=== PATIENT | female | born 1970 | race Caucasian/White ===

== ENCOUNTER 2021-06-28 07:46 | Inpatient (IN) | payer BC, SELFPAY ==
[2021-06-28] VITALS (18 sets, daily range): BP systolic 121–180; BP diastolic 65–104; PULSE 62–90; RESP 18–33; TEMP 36.6–37.1; O2SAT 85–95; BMI 60.0
--- NOTE | 2021-06-28 07:52 | XRR_ITS ---
PROCEDURE INFORMATION: Exam: XR Chest Exam date and time: 06/28/2021 7:52 AM Age: 50 years old Clinical indication: Cough and shortness of breath TECHNIQUE: Imaging protocol: XR of the chest. Views: 1 view. COMPARISON: No relevant prior studies available. FINDINGS: Lungs: Poor inspiration. Decreased lung volumes. Bilateral, asymmetric airspace disease, more so peripherally than centrally, potentially due to pneumonia. Pleural spaces: No pleural effusion or pneumothorax. Heart/Mediastinum: The cardiac silhouette is not enlarged. The mediastinal contours are normal. Bones/joints: There are multilevel bridging osteophytes in the spine. XR/XR chest 1V portable [id number] IMPRESSION: Bilateral, asymmetric airspace disease which could be due to pneumonia. COVID-19 status? Radiation Dose CTDIVOL = (mGy): DLP = (mGy-cm)
--- NOTE | 2021-06-28 07:55 | ECG_ITS ---
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
[2021-06-28] MEDS: albuterol 8 gm MDI 6 PUFF INHALATION (08:12)
[2021-06-28 08:14] LABS: Basophils % 0.3 %; Eosinophils % 0.1 %; Hematocrit 37.8 % (37.0-47.0); Hemoglobin 12.3 g/dL (11.5-15.3); Lymphocytes # 1.2 10^3/uL (0.8-4.8); Lymphocytes % 16.6 %; Mean Corpuscular HGB Conc 32.5 g/dL (30.0-36.0); Mean Corpuscular Hemoglobin 27.6 pg (28.0-34.0); Mean Corpuscular Volume 84.9 fl (81-99); Mean Platelet Volume 10.1 fL (7.4-10.4); Monocytes # 0.4 10^3/uL (0.2-0.9); Monocytes % 5.6 %; Neutrophils # 5.45 10^3/uL (1.8-7.7); Nucleated Red Blood Cells % 0 %; Platelet Count 187 10^3/cmm (130-400); Red Blood Count 4.45 10^6/uL (4.1-5.3); Red Cell Distribution Width 14.2 % (12.1-15.1); White Blood Count 7.2 10^3/uL (4.0-10.0)
[2021-06-28 08:23] LABS: ABG PCO2 39.4 mmHg (35-45); ABG PH Result 7.45 (7.35-7.45); Alveolar-Arterial Oxygen Gradi 21.2 mmHg (5-10); Arterial Blood Gas Hematocrit 39.2 % (37-47); Base Excess ABG 2.8 mmol/L (-2.0-2.0); Blood Gas Allen Test Pos; Blood Gas Operator Identificat ED; Blood Gas Sample Site Radial, right; Blood Gas Sample Type Arterial; Carboxyhemoglobin 0.8 %THgb (0.4-20.1); HGB O2 Sat 94.7 % (95-100); Ionized Calcium Level - ABG 1.1 mmol/L (1.1-1.4); Methemoglobin 0.3 % (0.4-1.5); Oxygen Device NC; Oxygen Saturation ABG 95.7; PO2 ABG 74.5 mmHg (80.0-100.0); Potassium Level - ABG 4.2 mmol/L (3.5-5.0); Total Hemoglobin 12.8 g/dL (12-16)
[2021-06-28] MEDS: sodium chloride 0.9% 1,000 ML 100 ML IV ×2 (08:23→16:46)
[2021-06-28] MEDS: ondansetron 2 mg/ML SDV 2 mL 4 MG IVP (08:24)
[2021-06-28] MEDS: dexamethasone 10 mg/mL INJ 6 MG IVP (08:26)
--- NOTE | 2021-06-28 08:27 | W.ED.SOB ---
HPI - SOB/Dyspnea General: Chief Complaint: Shortness of Breath/Dyspnea Stated Complaint: SOB Time Seen by Provider: 06/28/21 07:47 Source: patient and EMS Mode of arrival: EMS Limitations: no limitations History of Present Illness: HPI Narrative: Lisa is a 50-year-old female with a history of hypertension and hypothyroidism who comes in complaining of increased shortness of breath for the past 2 weeks. She states that she has had a cough productive of yellow sputum that is been nonbloody. She is wheezing. She had a subjective fever intermittently throughout this time. Her is sick with similar symptoms in both feel as though they have Covid. Neither 1 has been vaccinated for Covid. Upon arrival EMS noted the patient have a pulse oximetry of 80% on room air. She was placed on 4 L nasal cannula with improvement of her oxygenation in route. Patient states she feels achy all over and has associated sore throat, difficulty breathing and generalized malaise. She denies any history of lung disease such as emphysema, COPD or chronic bronchitis. She denies being a smoker. Patient states that her boyfriend is again sick with similar symptoms. Any type of exertion makes her symptoms worse and rest does seem to help but they do not resolve completely. Associated symptoms: Reports chest congestion, diaphoresis and fever(s); Deny abdominal pain, chest pain, dizziness, extremity pain, hemoptysis, lightheadedness, nausea, orthopnea, palpitations, syncope or vomiting Review of Systems Const: Reports: fever(s), chills, body aches, fatigue, malaise and diaphoresis Eyes: Denies: change in vision, blurry vision, photophobia, eye discomfort, eye discharge, eye redness or yellow eyes ENMT: Reports: throat pain, hoarseness and nasal discharge; Denies: odynophagia, swelling of lips/tongue, ear or mastoid pain, ear discharge or change in hearing Card: Reports: dyspnea on exertion; Denies: chest pain, palpitations, irregular heart rhythm, edema, lightheadedness, syncope, pre-syncope or orthopnea Resp: Reports: dyspnea, productive cough, non-productive cough, wheezing and chest congestion; Denies: hemoptysis GI: Denies: abdominal pain, nausea, vomiting, hematemesis, coffee ground emesis, heartburn, diarrhea, constipation, GI cramping, hematochezia or melena : Denies: flank pain, dysuria, urinary frequency, urinary urgency or hematuria Musc: Denies: neck pain, back pain, extremity pain, extremity swelling, joint pain, joint swelling, joint redness, joint warmth or joint stiffness Skin/Breast: Denies: rash, pruritus, erythema, skin pain or skin tenderness Neuro: Denies: headache(s), numbness in extremities, weakness in extremities, sensory changes, lack of coordination, difficulty walking, dizziness, vertigo, confusion, Slurred speech present or seizure-like activity Alberto/Lymph: Denies: easy bruising, easy bleeding, petechiae, purpura or enlarged lymph nodes All/Imm: Denies: urticaria, throat swelling, tongue swelling, facial swelling or acute wheezing PFSH ED PFSH: Medical History (Updated 06/28/21 @ 10:03 by Sun Harvey) Hypertension Hypothyroidism Surgical History (Updated 06/28/21 @ 08:31 by Sun Harvey) H/O tubal ligation Social History (Updated 06/28/21 @ 08:31 by Sun Harvey) Smoking and tobacco status: never smoked Female Reproductive History: Date of last menstrual period: 05/27/21 Physical Exam Const: COMMON NORMALS: no acute distress, patient oriented x3, no limitations and alert GENERAL APPEARANCE: cooperative HENMT: COMMON NORMALS: normocephalic, atraumatic, external ears normal, EAC's normal and Normal external nose present HEAD & SCALP: normal to inspection, normocephalic and atraumatic FACE & SINUS: normal facial exam and face symmetric NOSE: Normal external nose present and Normal nares present EXTERNAL EAR: Yes external ears normal EXTERNAL AUDITORY CANAL: EAC's normal MOUTH: Normal oral and palatal mucosa present, lip normal and tongue normal Eye: COMMON NORMALS: Equal, round and reactive pupils present and conjunctivae normal GENERAL EYE: appearance normal, both eyes and all related structures ALIGNMENT: Yes alignment normal PERIORBITAL: periorbital findings normal EYELID: eyelids normal CONJUNCTIVA: Yes conjunctivae normal SCLERA: sclerae normal PUPIL: Yes Equal, round and reactive pupils present Neck/C-Spine: COMMON NORMALS: full ROM, no lymphadenopathy, supple, no meningeal signs and no JVD GENERAL: Yes normal visual inspection and Yes trachea midline Chest: COMMONS NORMALS: normal inspection of the chest and normal palpation of entire chest wall Resp: COMMON NORMALS: normal respiratory effort, No retractions and clear to auscultation bilaterally EFFORT & INSPECTION: Yes able to speak in complete sentences, Yes symmetric chest movement, Yes tachypneic, Yes labored, Yes grunting, Yes uses accessory muscles, Yes audible wheezes and Yes prolonged expiratory phase AUSCULTATION: clear to auscultation bilaterally, no crackles, no rales, no rhonchi and no wheezes Cardio: COMMON NORMALS: no JVD, regular rate, regular rhythm, S1 normal heart sound present and S2 normal heart sound present RATE: regular rate RHYTHM: regular rhythm HEART SOUNDS: S1 normal heart sound present, S2 normal heart sound present, no click, no gallops, no murmurs and no rubs GI: COMMON NORMALS: Soft to palpation and No hepatosplenomegaly present PALPATION: Yes Soft to palpation, No Tenderness to palpation present (GI), No Guarding due to palpation present (GI), No Rigid due to palpation, Yes No hepatosplenomegaly present, No Hernia present, No Palpable mass present and No Pulsatile mass present : COMMON NORMALS: Yes no CVA tenderness BLADDER/KIDNEY EXAM: Yes no CVA tenderness EXTERNAL FEMALE EXAM: No Hernia present Back/Pelvis: COMMON NORMALS: no CVA tenderness, thoracic and lumbar spine normal to inspection, no thoracic nor lumbar tenderness and thoraco-lumbar ROM normal Extremity: COMMON NORMALS: normal to inspection, full ROM, capillary refill normal, no joint enlargement, no clubbing, cyanosis or edema and no calf tenderness Neuro: COMMON NORMALS: patient oriented x3, CN's II-XII intact bilaterally, moves all extremities, no focal motor deficits and no sensory deficits noted SENSORIUM/ORIENTATION: Yes alert MENINGEAL SIGNS: Yes no meningeal signs SPEECH: speech normal Psych: COMMON NORMALS: mental status grossly normal, Normal thought process present, cooperative, normal affect, speech normal and activity/motor behavior normal SPEECH: Yes normal speech THOUGHT PROCESS: Normal thought process present Skin: COMMON NORMALS: no rashes or lesions noted, turgor normal, no jaundice, no petechiae and no mottling GENERAL SKIN EXAM: no rashes or lesions noted and turgor normal Course Vital Signs: Vital signs: Vital Signs Temperature 98.8 F 06/28/21 07:53 Pulse Rate 87 06/28/21 08:31 Respiratory Rate 18 06/28/21 08:12 Blood Pressure 125/88 06/28/21 08:31 Pulse Oximetry 90 06/28/21 08:31 MDM - SOB/Dyspnea MDM Narrative: Medical decision making narrative: 1002 -the case was reviewed with Dr. Laureano, he agrees to go and admit. He is okay with holding off on the CTA of the chest at this time. He will decide if he wants to work her up for a PE further. At this time though he wants to hold off. Patient is stable on 5 L of nasal cannula oxygen. She is slightly tachypneic but not in respiratory distress. The patient's have received Decadron, Rocephin, Zithromax and albuterol treatments. Her lactic is normal. Further care be dictated on the inpatient service. Lab Data: Attestation: I reviewed the patient's lab results. Labs: Lab Results 06/28/21 06/28/21 06/28/21 08:02 08:02 08:02 WBC 7.2 10^3/uL 10^3/ uL (4.0-10.0) RBC 4.45 10^6/uL 10^6 /uL (4.1-5.3) Hgb 12.3 g/dL g/dL (11.5-15.3) Hct 37.8 % % (37.0-47.0) MCV 84.9 fl fl (81-99) MCH 27.6 pg L pg (28.0-34.0) MCHC 32.5 g/dL g/dL (30.0-36.0) RDW 14.2 % % (12.1-15.1) Plt Count 187 10^3/cmm 10^3 /cmm (130-400) MPV 10.1 fL fL (7.4-10.4) Neut % (Auto) 76.0 % % Lymph % (Auto) 16.6 % % Nicholas % (Auto) 5.6 % % Eos % (Auto) 0.1 % % Baso % (Auto) 0.3 % % Neut # (Auto) 5.45 10^3/uL 10^3 /uL (1.8-7.7) Lymph # (Auto) 1.2 10^3/uL 10^3/ uL (0.8-4.8) Nicholas # (Auto) 0.4 10^3/uL 10^3/ uL (0.2-0.9) Eos # (Auto) 0.0 10^3/uL 10^3/ uL (0.0-0.8) Baso # (Auto) 0.0 10^3/uL 10^3/ uL (0.0-0.1) Nucleated RBC % (a uto) 0 % % Nucleated RBCs # 0.0 /100WBC /100W BC PT 14.00 SECONDS SEC ONDS (12.1-14.9) INR 1.05 (0.8-1.2) APTT 23.1 SECONDS L SE CONDS (23.9-36.7) D-Dimer 1.82 ug/mIFEU H u g/mIFEU (0-0.59) Specimen Type Sample Site ABG pH ABG pCO2 ABG pO2 ABG HCO3 ABG O2 Saturation ABG Base Excess Matt Test A-a O2 Gradient Hematocrit Hgb O2 Saturation Carboxyhemoglobin Methemoglobin Total Hemoglobin Ionized Calcium O2 Delivery Device O2 Liters/Min FiO2 Safety And Health Manager ID Sodium 131 mmol/L L mmol /L (136-145) Potassium 4.3 mmol/L mmol/L (3.5-5.1) Chloride 94 mmol/L L mmol/ L (98-107) Carbon Dioxide 23 mmol/L mmol/L (22-29) Anion Gap 18.3 (5-19) BUN 9 mg/dL mg/dL (6-20) Creatinine 0.7 mg/dL mg/dL (0.5-0.9) GFR Calculation 88.6 mL/min L mL/ min (90-130) Glucose 167 mg/dL H mg/dL (65-115) Calculated Osmolal ity 274 mOsm/kg L mOs m/kg (285-295) Lactic Acid Calcium 8.2 mg/dL L mg/dL (8.5-10.5) Magnesium 1.7 mg/dL mg/dL (1.7-2.3) Ferritin 323 ng/mL H ng/mL (15-150) Total Bilirubin 0.3 mg/dL mg/dL (0.15-1.2) AST 68 U/L H U/L (0-32) ALT 51 U/L H U/L (0-33) Alkaline Phosphata se 90 IU/L IU/L (35-105) Lactate Dehydrogen ase 453 U/L H U/L (135-214) Troponin T Baselin e C-Reactive Protein 126.1 mg/L H mg/L (0.0-4.9) NT-Pro-B Natriuret Pep 95 pg/mL pg/mL (0-125) Total Protein 6.5 g/dL L g/dL (6.6-8.7) Albumin 3.6 g/dL g/dL (3.5-5.2) Globulin 3.1 g/dL g/dL (1.3-4.6) Urine Color Urine Appearance Urine pH Ur Specific Gravit y Urine Protein Urine Glucose (UA) Urine Ketones Urine Blood Urine Nitrate Urine Bilirubin Urine Urobilinogen Ur Leukocyte Katherin ase Urine RBC Urine WBC Ur Squamous Epith Cells Amorphous Sediment Urine Bacteria Urine Mucus Influenza Type A A g Influenza Type B A g SARS-CoV-2 Ag (Rap id) 06/28/21 06/28/21 06/28/21 08:02 08:02 08:13 WBC RBC Hgb Hct MCV MCH MCHC RDW Plt Count MPV Neut % (Auto) Lymph % (Auto) Nicholas % (Auto) Eos % (Auto) Baso % (Auto) Neut # (Auto) Lymph # (Auto) Nicholas # (Auto) Eos # (Auto) Baso # (Auto) Nucleated RBC % (a uto) Nucleated RBCs # PT INR APTT D-Dimer Specimen Type Arterial Sample Site Radial, right ABG pH 7.45 (7.35-7.45) ABG pCO2 39.4 mmHg mmHg (35-45) ABG pO2 74.5 mmHg L mmHg (80.0-100.0) ABG HCO3 27.0 mmol/L H mmo l/L (22-26) ABG O2 Saturation 95.7 ABG Base Excess 2.8 mmol/L H mmol /L (-2.0-2.0) Matt Test Pos A-a O2 Gradient 21.2 mmHg H mmHg (5-10) Hematocrit 39.2 % % (37-47) Hgb O2 Saturation 94.7 % L % (95-100) Carboxyhemoglobin 0.8 %THgb %THgb (0.4-20.1) Methemoglobin 0.3 % L % (0.4-1.5) Total Hemoglobin 12.8 g/dL g/dL (12-16) Ionized Calcium 1.1 mmol/L mmol/L (1.1-1.4) O2 Delivery Device Nc O2 Liters/Min 5.0 % % FiO2 40.0 % % Safety And Health Manager ID Ed Sodium 134.0 mmol/L mmol /L (131-143) Potassium 4.2 mmol/L mmol/L (3.5-5.0) Chloride Carbon Dioxide Anion Gap BUN Creatinine GFR Calculation Glucose 183.0 mg/dL H mg/ dL (70-115) Calculated Osmolal ity Lactic Acid 1.5 mmol/L mmol/L (0.5-2.2) Calcium Magnesium Ferritin Total Bilirubin AST ALT Alkaline Phosphata se Lactate Dehydrogen ase Troponin T Baselin e 11 ng/L H ng/L (0-10) C-Reactive Protein NT-Pro-B Natriuret Pep Total Protein Albumin Globulin Urine Color Urine Appearance Urine pH Ur Specific Gravit y Urine Protein Urine Glucose (UA) Urine Ketones Urine Blood Urine Nitrate Urine Bilirubin Urine Urobilinogen Ur Leukocyte Katherin ase Urine RBC Urine WBC Ur Squamous Epith Cells Amorphous Sediment Urine Bacteria Urine Mucus Influenza Type A A g Influenza Type B A g SARS-CoV-2 Ag (Rap id) 06/28/21 06/28/21 06/28/21 08:46 08:46 08:50 WBC RBC Hgb Hct MCV MCH MCHC RDW Plt Count MPV Neut % (Auto) Lymph % (Auto) Nicholas % (Auto) Eos % (Auto) Baso % (Auto) Neut # (Auto) Lymph # (Auto) Nicholas # (Auto) Eos # (Auto) Baso # (Auto) Nucleated RBC % (a uto) Nucleated RBCs # PT INR APTT D-Dimer Specimen Type Sample Site ABG pH ABG pCO2 ABG pO2 ABG HCO3 ABG O2 Saturation ABG Base Excess Matt Test A-a O2 Gradient Hematocrit Hgb O2 Saturation Carboxyhemoglobin Methemoglobin Total Hemoglobin Ionized Calcium O2 Delivery Device O2 Liters/Min FiO2 Safety And Health Manager ID Sodium Potassium Chloride Carbon Dioxide Anion Gap BUN Creatinine GFR Calculation Glucose Calculated Osmolal ity Lactic Acid Calcium Magnesium Ferritin Total Bilirubin AST ALT Alkaline Phosphata se Lactate Dehydrogen ase Troponin T Baselin e C-Reactive Protein NT-Pro-B Natriuret Pep Total Protein Albumin Globulin Urine Color Dark yellow (Yellow) Urine Appearance Sl hazy (CLEAR) Urine pH 6 (5-7) Ur Specific Gravit y 1.015 (1.005-1.030) Urine Protein 1+ H (Negative) Urine Glucose (UA) Norm (Normal) Urine Ketones 1+ H (Negative) Urine Blood Neg (Negative) Urine Nitrate Negative (Negative) Urine Bilirubin 1+ H (Negative) Urine Urobilinogen 1 mg/dL H mg/dL (Negative) Ur Leukocyte Katherin ase Negative (Negative) Urine RBC None /hpf /hpf (0-2) Urine WBC Rare /hpf /hpf (0-5) Ur Squamous Epith Cells 0-4 /hpf H /hpf (0-5) Amorphous Sediment Not Reportable Urine Bacteria 1+ /hpf H /hpf (NONE) Urine Mucus 2+ /hpf /hpf Influenza Type A A g Negative (Negative) Influenza Type B A g Negative (Negative) SARS-CoV-2 Ag (Rap id) Positive H (Negative) Imaging Data^: CXR: Attestation: I personally reviewed and interpreted this imaging study as follows: My impression: Bilateral infiltrates consistent with a viral pneumonia EKG Data^: EKG 1: Attestation: I personally reviewed and interpreted this EKG as follows: Interpretation: 0755 -normal sinus rhythm at 91 beats a minute, no blocks, normal intervals, nonspecific ST and T wave changes. Wandering baseline artifact Discharge Plan Discharge Patient Disposition: Admitted As Inpatient Clinical Impression: Pneumonia due to 2019 novel coronavirus Condition: Stable Referrals: Brigitte Morales ANNUAL GREENHOUSE MANAGER [Primary Care Provider] - Coding Level of Care Code ED Geologic Technician for Chg Fwd Exam Comprehensive
[2021-06-28 08:44] LABS: Troponin(5th) Baseline 11 ng/L (0-10)
[2021-06-28 08:47] LABS: Lactic Sepsis W/Reflex 1.5 mmol/L (0.5-2.2)
[2021-06-28 08:52] LABS: Slide Review Slide Review Perform
[2021-06-28 08:59] LABS: INR 1.05 (0.8-1.2); Partial Thromboplastin Time 23.1 SECONDS (23.9-36.7)
[2021-06-28 08:59] LABS: Blood Urine Neg (Negative); Glucose Urine UA Norm (Normal); Ketones Urine 1+ (Negative); Protein Urine 1+ (Negative); Specific Gravity, Urine 1.015 (1.005-1.030); Urine Appearance SL Hazy (CLEAR); Urine Color Dark Yellow (Yellow); pH Urine 6 (5-7)
[2021-06-28 09:00] LABS: Bilirubin Urine 1+ (Negative); Leukocyte Esterase Urine Negative (Negative); Nitrate Urine Negative (Negative); Urobilinogen Urine 1 mg/dL (Negative)
[2021-06-28 09:01] LABS: Add Urine Culture? No; Bacteria Urine 1+ /hpf; Mucus Urine 2+ /hpf; Squamous Epithelial Cell Urine 0-4 /hpf (0-5); WBC Urine RARE /hpf (0-5)
[2021-06-28 09:02] LABS: D Dimer 1.82 ug/mIFEU (0-0.59)
[2021-06-28 09:07] LABS: Alanine Aminotransferase 51 U/L (0-33); Alkaline Phosphatase 90 IU/L (35-105); Anion Gap 18.3 (5-19); Aspartate Amino Transferase 68 U/L (0-32); Blood Urea Nitrogen 9 mg/dL (6-20); C Reactive Protein 126.1 mg/L (0.0-4.9); Calcium 8.2 mg/dL (8.5-10.5); Carbon Dioxide 23 mmol/L (22-29); Chloride 94 mmol/L (98-107); Ferritin 323 ng/mL (15-150); Globulin 3.1 g/dL (1.3-4.6); Glomerular Filtration Rate 88.6 mL/min (90-130); Glucose 167 mg/dL (65-115); Lactate Dehydrogenase 453 U/L (135-214); Magnesium 1.7 mg/dL (1.7-2.3); NT Pro B Type Natriuretic Pept 95 pg/mL (0-125); Osmolality Calculated 274 mOsm/kg (285-295); Potassium 4.3 mmol/L (3.5-5.1); Sodium 131 mmol/L (136-145); Total Bilirubin 0.3 mg/dL (0.15-1.2); Total Protein 6.5 g/dL (6.6-8.7)
[2021-06-28 09:09] LABS: Albumin Level 3.6 g/dL (3.5-5.2)
--- NOTE | 2021-06-28 09:11 | CTR_ITS ---
PROCEDURE INFORMATION: Exam: CTA Chest With Contrast Exam date and time: 06/28/2021 9:11 AM Age: 50 years old Clinical indication: Patient HX: Cough and dyspnea x weeks TECHNIQUE: Imaging protocol: Computed tomographic angiography of the chest with contrast. 3D rendering (Not supervised by radiologist): MIP and/or 3D reconstructed images were created by the technologist. Radiation optimization: All CT scans at this facility use at least one of these dose optimization techniques: automated exposure control; mA and/or kV adjustment per patient size (includes targeted exams where dose is matched to clinical indication); or iterative reconstruction. Contrast material: [id number]; Contrast volume: 95 ml; Contrast route: INTRAVENOUS (IV); COMPARISON: XR CHEST 06/28/2021 7:59 AM RADIATION DOSE METRICS: Total DLP (mGy-cm): 840.73 FINDINGS: Limitations: The study is technically limited by the patient's body habitus. Pulmonary arteries: No sign of acute pulmonary embolism. Aorta: No thoracic aortic aneurysm or dissection. Lungs: There are bilateral, multifocal, primarily peripheral pulmonary ground-glass opacities compatible with pneumonia, highly suspicious for COVID-19 pneumonia. Calcified granuloma in the posteromedial left lower lobe. Pleural spaces: No pleural effusion or pneumothorax. Heart: The heart is not enlarged. No pericardial effusion. Lymph nodes: Calcified left hilar lymph node from prior granulomatous disease. Liver: There is fatty change involving the liver parenchyma. Bones/joints: There are multilevel bridging osteophytes in the spine. Soft tissues: No acute soft tissue abnormality. CT/CT angio chest PE protcl [id number] IMPRESSION: 1. Technically limited exam, but no sign of acute pulmonary embolism. 2. Bilateral, multifocal airspace disease. Highly suspicious for COVID-19 pneumonia. Radiation Dose CTDIVOL = (mGy): DLP = 840.73 (mGy-cm)
[2021-06-28 09:16] LABS: Influenza A by IFA Negative (Negative); Influenza B by IFA Negative (Negative)
[2021-06-28 09:16] LABS: SARS Covid-2 Antigen Positive (Negative)
[2021-06-28] MEDS: iohexol 350 mg/mL 100 mL Btl IV (10:07)
[2021-06-28] MEDS: enoxaparin 40 mg/0.4 mL Syringe SUBCUT ×2 (10:46→21:25)
[2021-06-28] MEDS: cefTRIAXone 1,000 MG in sodium chloride 0.9% (plus) 50 ML 100 MG IV (10:47)
[2021-06-28] MEDS: azithromycin 500 MG in sodium chloride 0.9% 250 ML 250 MG IV (11:24)
[2021-06-28 11:27] LABS: Troponin 5 2HR 10.63 ng/L (0-10)
[2021-06-28 11:28] LABS: Troponin 5 2HR Delta -0.37 ABS# (0-10)
--- NOTE | 2021-06-28 12:55 | PM.HP ---
Providers/Chief Complaint Admitting Physician: Gabriel Laureano MD Primary Care Provider: Brigitte Morales APN Chief Complaint: SOB History of Present Illness Lisa Avila is a 50 year old female past medical history of hypertension and hypothyroidism, came in with chief complaint of worsening shortness of breath for the past 2 weeks, accompanied with cough with productive sputum, She was also complaining of subjective fever at home, as well as generalized body pain, fatigue, poor appetite. upon arrival in the ER she was saturating into 80% on room air, she was placed on 4 L oxygen through nasal cannula thereafter she has been saturating above 90%. Upon arrival in the ER she was worked up for above-mentioned complaint: Pertinent imaging studies: CT angio chest PE: Protocol: No acute PE, bilateral infiltrates in both lungs. X-ray chest: Bilateral, asymmetric airspace disease which could be due to pneumonia. EKG:SINUS RHYTHM, no acute ST-T wave changes Pertinent labs: WBC 7.2 H&H 12.3 and 37,plt : 187 , serum sodium 131 serum potassium 4.3 BUN serum creatinine:9/0.7, lactic acid 1.5, troponin trended without significant , proBNP normal CRP 126, ferritin 323, LDH 453, Rapid Covid antigen is positive, influenza negative. ABG: pH 7.45 PCO2:39, PO2 74.5, FiO2 40% Review of Systems Const: Denies: diaphoresis Card: Denies: palpitations or edema Resp: Denies: dyspnea, productive cough, wheezing or pain on inspiration GI: Denies: abdominal pain, nausea, vomiting, diarrhea or constipation : Denies: flank pain Musc: Denies: back pain, extremity pain or extremity swelling Neuro: Denies: headache(s) or confusion Medications/Allergies Home Medications Medication Instructions Recorded Confirmed Last Taken Type levothyroxine [Euthyrox] 150 mcg PO DAILY 06/28/21 06/28/21 06/27/21 History lisinopril 40 mg PO DAILY 06/28/21 06/28/21 06/27/21 History lovastatin 20 mg PO DAILY 06/28/21 06/28/21 06/27/21 History paroxetine HCl 10 mg PO DAILY 06/28/21 06/28/21 06/27/21 History Allergies Allergy/AdvReac Type Severity Reaction Status Date / Time acetaminophen [From Tylenol] Allergy ALGY-Anaphy Verified 06/28/21 07:53 laxis PFSH Acute PFSH: Medical History (Updated 06/28/21 @ 10:03 by Sun Harvey) Hypertension Hypothyroidism Surgical History (Updated 06/28/21 @ 08:31 by Sun Harvey) H/O tubal ligation Social History (Updated 06/28/21 @ 08:31 by Sun Harvey) Smoking and tobacco status: never smoked Female Reproductive History: Date of last menstrual period: 05/27/21 Vitals/I&O/Wt Last Vital Signs Temp 98.8 F 06/28/21 07:53 Pulse 80 06/28/21 10:48 Resp 18 06/28/21 08:12 BP 121/104 06/28/21 10:48 Pulse Ox 90 06/28/21 10:48 06/27/21 06/28/21 06/28/21 22:59 06:59 14:59 Intake Total 50 / 50 Balance 50 / 50 Weight last 48 hrs Weight 158.757 kg Physical Exam Const: COMMON NORMALS: patient oriented x3 HENMT: COMMON NORMALS: normocephalic and atraumatic HEAD & SCALP: normocephalic and atraumatic Resp: COMMON NORMALS: clear to auscultation bilaterally AUSCULTATION: clear to auscultation bilaterally Cardio: COMMON NORMALS: regular rate, regular rhythm, S1 normal heart sound present, S2 normal heart sound present, No gallops present (Cardio), No murmurs present (Cardio), No rub (Cardio) and Peripheral pulses 2+ throughout RATE: regular rate RHYTHM: regular rhythm HEART SOUNDS: S1 normal heart sound present and S2 normal heart sound present PERIPHERAL PULSES: Peripheral pulses 2+ throughout GI: COMMON NORMALS: Normal to inspection, nondistended, normoactive bowel sounds present, Soft to palpation, non-tender, No hepatosplenomegaly present and no masses AUSCULTATION: Yes normoactive bowel sounds PALPATION: Yes Soft to palpation and Yes No hepatosplenomegaly present RECTAL EXAM: deferred Extremity: COMMON NORMALS: no clubbing, cyanosis or edema and no pedal edema Neuro: COMMON NORMALS: patient oriented x3 Urinary Catheter Management^: Munoz: Cath Placed During This Visit: no Data : 06/28/21 08:02 06/28/21 08:02 Micro: Microbiology 06/28/21 10:45 Blood Culture - Preliminary Blood SPECIMEN COLLECTED 06/28/21 10:30 Blood Culture - Preliminary Blood SPECIMEN COLLECTED A&P Assessment and plan (1) Pneumonia due to 2019 novel coronavirus: 50 year old female past medical history of hypertension and hypothyroidism, came in with chief complaint of worsening shortness of breath for the past 2 weeks, accompanied with cough with productive sputum, She was also complaining of subjective fever at home, as well as generalized body pain, fatigue, poor appetite. Currently on Covid protocol. Monitor inflammatory markers (ESR , CRP , D-dimer, LDH , ferritin ) Monitor x-ray chest, ABG Blood culture Dexamethasone 6 mg IV for 10 10 days Remdesivir 5 days Consider Tocilizumab Empirically on ceftriaxone azithromycin Antitussives DuoNeb's Supplemental oxygen as needed Status: Acute (2) Hypothyroidism: Continue levothyroxine Status: Acute (3) Hypertension: Continue lisinopril Status: Acute Attestations Medical Necessity Statement*: Patient needs to be in the hospital for management of Covid pneumonia. Anticipated length of stay greater than 2 midnights Coding Level of Care Code Acute Asphalt Tamping Machine Operator for Kevin Cruz Diagnoses Pneumonia due to 2019 novel coronavirus U07.1; J12.82 Hypothyroidism E03.9 Hypertension I10
--- NOTE | 2021-06-28 13:55 | ECG_ITS ---
[facility] Test Date: 2021-06-28 Pat Name: Lisa Avila Department: Room: 111 Gender: Female Cardiovascular Or Nurse: : 1970 Requested By: Sun Cardenas Order Number: [id number] Reading MD: CANDY LAKHANI Measurements Intervals [place] Rate: 75 P: 43 TN: 165 QRS: -8 QRSD: 116 T: 73 QT: 412 QTc: 462 Interpretive Statements SINUS RHYTHM POSSIBLE LATERAL MYOCARDIAL INFARCTION , OF INDETERMINATE AGE [30 ms Q WAVE IN I/aVL/V5/V6] Compared to ECG 06/28/2021 07:55:57 Myocardial infarct finding now present T-wave abnormality no longer present Electronically Signed On 06-29-2021 12:59:03 WELL FLOW OPERATOR by CANDY LAKHANI [id number]
[2021-06-28] MEDS: remdesivir 200 MG in sodium chloride 0.9% (100 ml) 60 ML 100 MG IV (16:43)
[2021-06-28] MEDS: benzonatate 100 mg Capsule PO ×2 (16:44→21:25)
[2021-06-28] MEDS: ipratropium-albuterol 3 mL Neb INHALATION ×3 (16:55→23:44)
[2021-06-28] MEDS: ascorbic acid 500 mg Tablet 1000 MG PO (17:59)
[2021-06-29] VITALS (18 sets, daily range): BP systolic 141–158; BP diastolic 67–80; PULSE 69–88; RESP 18–27; TEMP 36.1–37.1; O2SAT 89–96
[2021-06-29] MEDS: ipratropium-albuterol 3 mL Neb INHALATION ×5 (03:30→20:59)
[2021-06-29 05:03] LABS: Basophils % 0.4 %; Hematocrit 39.2 % (37.0-47.0); Hemoglobin 12.2 g/dL (11.5-15.3); Lymphocytes # 1.1 10^3/uL (0.8-4.8); Lymphocytes % 13.5 %; Mean Corpuscular HGB Conc 31.1 g/dL (30.0-36.0); Mean Corpuscular Hemoglobin 27.6 pg (28.0-34.0); Mean Corpuscular Volume 88.7 fl (81-99); Mean Platelet Volume 10.4 fL (7.4-10.4); Monocytes # 0.8 10^3/uL (0.2-0.9); Monocytes % 9.6 %; Neutrophils # 5.89 10^3/uL (1.8-7.7); Neutrophils % 72.4 %; Nucleated Red Blood Cells % 0 %; Platelet Count 200 10^3/cmm (130-400); Red Blood Count 4.42 10^6/uL (4.1-5.3); Red Cell Distribution Width 14.5 % (12.1-15.1); White Blood Count 8.1 10^3/uL (4.0-10.0)
[2021-06-29 05:41] LABS: NT Pro B Type Natriuretic Pept 138 pg/mL (0-125); Procalcitonin 0.09 ng/mL (0-0.5)
[2021-06-29 05:52] LABS: Alanine Aminotransferase 41 U/L (0-33); Albumin Level 3.4 g/dL (3.5-5.2); Alkaline Phosphatase 90 IU/L (35-105); Anion Gap 16.8 (5-19); Aspartate Amino Transferase 45 U/L (0-32); Blood Urea Nitrogen 12 mg/dL (6-20); Calcium 7.8 mg/dL (8.5-10.5); Carbon Dioxide 25 mmol/L (22-29); Chloride 103 mmol/L (98-107); Globulin 3.1 g/dL (1.3-4.6); Glomerular Filtration Rate 130.6 mL/min (90-130); Glucose 144 mg/dL (65-115); Magnesium 2.1 mg/dL (1.7-2.3); Osmolality Calculated 292 mOsm/kg (285-295); Potassium 4.8 mmol/L (3.5-5.1); Sodium 140 mmol/L (136-145); Total Bilirubin 0.2 mg/dL (0.15-1.2); Total Protein 6.5 g/dL (6.6-8.7)
[2021-06-29 05:58] LABS: INR 0.97 (0.8-1.2)
[2021-06-29 06:19] LABS: Partial Thromboplastin Time 30.6 SECONDS (23.9-36.7)
[2021-06-29 06:21] LABS: Slide Review Slide Review Perform
[2021-06-29] MEDS: lisinopril 20 mg Tablet 40 MG PO (09:38)
[2021-06-29] MEDS: enoxaparin 40 mg/0.4 mL Syringe SUBCUT ×2 (09:38→23:35)
[2021-06-29] MEDS: zinc gluconate 50 mg Tablet PO (09:38)
[2021-06-29] MEDS: atorvastatin 40 mg Tablet 20 MG PO (09:39)
[2021-06-29] MEDS: levothyroxine 150 mcg Tablet PO (09:39)
[2021-06-29] MEDS: benzonatate 100 mg Capsule PO (09:39)
[2021-06-29] MEDS: PARoxetine 20 mg Tablet 10 MG PO (09:39)
[2021-06-29] MEDS: ascorbic acid 500 mg Tablet 1000 MG PO ×2 (09:39→20:07)
--- NOTE | 2021-06-29 09:41 | PC.CHAP ---
Pastoral Care Encounter/Spiritual Assessment Type of Contact [] Declined chopper operator visit [] Patient/Family/Request visit [] Outpatient visit [] Follow-up visit [] Physician referral [] Code/Alert [x] Routine visit [] Staff referral [] Actively dying [x] Patient sleeping [] Family support [] [] Out of room [] Palliative care [] [] Receiving care in room [] Pre-surgical visit [] Trauma [] Long length of stay [] ICU visit [] Other: Relational/Emotional Strength [] Patient feels connected with others/family/visitors/staff [] Distress [] Loneliness/isolation [] Abandonment Spirituality of Patient [] Person of Anya [] Attends Protestant of their Anya [] Believes in Prayer [] Reads Bible or Sikh materials [] There are Spiritual issues to be addressed 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 Hot Wire 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 Interventions [x] Prayer [] Active listening [] Non-anxious presence [] Spiritual/emotional support [] Crisis/trauma care [] Spiritual counseling [] Bereavement support [] Provided bereavement packet [] Provided Bible/devotional materials [] Provided toy/stuffed animal, coloring book to patient or family member [] Provided Communion [] Anointing/Conger [] Salvation [x] Completed spiritual assessment [] Other: Impact on Illness or Injury [] Angry [] Fearful [] Anxious [] Often cries [] Exhaustion [] Unable to work [] Unable to attend bahai [] Unable to walk/stand [] Unable to read [] Unable to drive [] Unable to eat/drink [] Unable to sleep [] Unable to be with family [] Patient intubated [] Other: Summary Time spent with patient
[2021-06-29] MEDS: cefTRIAXone 1,000 MG in sodium chloride 0.9% (plus) 50 ML 100 MG IV (11:15)
[2021-06-29] MEDS: azithromycin 500 MG in sodium chloride 0.9% 250 ML 250 MG IV (12:38)
[2021-06-29] MEDS: dexamethasone 4 mg/mL INJ 6 MG IVP (12:40)
[2021-06-29] MEDS: LORazepam 2 mg/mL INJ 1 mL 0.5 MG IVP (13:33)
--- NOTE | 2021-06-29 17:56 | P.PN_ITS ---
Subjective Subjective: Interval history: Patient was seen this morning, she complains of anxiety, she is on 15 l, no nausea, no vomiting, no chest pain, no lightheadedness, no dizziness Vitals/I&O/Wt Last Vital Signs Temp 97.8 F 06/29/21 12:30 Pulse 79 06/29/21 16:36 Resp 18 06/29/21 16:36 BP 158/79 06/29/21 12:30 Pulse Ox 92 06/29/21 16:36 06/29/21 06/29/21 06/29/21 06:59 14:59 22:59 Intake Total 1300 / 2963.333 480 / 480 Output Total 800 / 800 Balance 500 / 2163.333 480 / 480 Weight last 48 hrs Weight 167.738 kg Weight 158.757 kg Physical Exam Const: COMMON NORMALS: no acute distress and patient oriented x3 Resp: COMMON NORMALS: normal respiratory effort, No retractions, No use of accessory muscles and clear to auscultation bilaterally AUSCULTATION: clear to auscultation bilaterally Cardio: COMMON NORMALS: regular rate, regular rhythm, S1 normal heart sound present and S2 normal heart sound present RATE: regular rate RHYTHM: r egular rhythm HEART SOUNDS: S1 normal heart sound present and S2 normal heart sound present GI: COMMON NORMALS: Normal to inspection, nondistended, normoactive bowel sounds present, Soft to palpation and non-tender PALPATION: Yes Soft to palpation Extremity: COMMON NORMALS: no pedal edema Neuro: COMMON NORMALS: patient oriented x3 Psych: COMMON NORMALS: mental status grossly normal Urinary Catheter Management^: Munoz: Cath Placed During This Visit: no Reason for Continuing Indwelling Catheter: Acute Urinary Retention or Obstruction Data : 06/29/21 04:37 06/29/21 04:37 Micro: Microbiology 06/28/21 10:45 Blood Culture - Preliminary Blood 06/28/21 10:30 Blood Culture - Preliminary Blood NEGATIVE TO DATE A&P Assessment and plan (1) Pneumonia due to 2019 novel coronavirus: 50 year old female past medical history of hypertension and hypothyroidism, came in with chief complaint of worsening shortness of breath for the past 2 weeks, accompanied with cough with productive sputum, She was also complaining of subjective fever at home, as well as generalized body pain, fatigue, poor appetite. Currently on Covid protocol. Monitor inflammatory markers (ESR , CRP , D-dimer, LDH , ferritin ) Monitor x-ray chest, ABG Blood culture Dexamethasone 6 mg IV for 10 10 days Remdesivir 5 days Will start baricitinib day 1 of 14 Empirically on ceftriaxone and azithromycin Antitussives DuoNeb's Supplemental oxygen as needed Lovenox 40 every 12 for DVT prophylaxis Status: Acute (2) Hypothyroidism: Continue levothyroxine Status: Acute (3) Hypertension: Continue lisinopril Status: Acute (4) Acute respiratory failure with hypoxia: Status: Acute Attestations Medical Necessity Statement*: Patient requires hospitalization and due to COVID-19, acute hypoxic respiratory failure Coding Level of Care Code Acute Cash Applications Clerk for [facility] Diagnoses Pneumonia due to 2019 novel coronavirus U07.1; J12.82 Hypothyroidism E03.9 Hypertension I10 Acute respiratory failure with hypoxia J96.01
[2021-06-29] MEDS: remdesivir 100 MG in sodium chloride 0.9% (100 ml) 80 ML IV (20:06)
[2021-06-29 20:21] LABS: Estmated Average Glucose 157; Hemoglobin A1C 7.1 % (4.0-6.0)
[2021-06-30] VITALS (19 sets, daily range): BP systolic 122–153; BP diastolic 64–86; PULSE 70–102; RESP 18–26; TEMP 36.6–37.1; O2SAT 91–903
[2021-06-30] MEDS: ipratropium-albuterol 3 mL Neb INHALATION ×6 (00:30→20:31)
[2021-06-30 03:36] LABS: Basophils % 0.4 %; Eosinophils % 0.1 %; Hemoglobin 11.7 g/dL (11.5-15.3); Lymphocytes % 12.1 %; Mean Corpuscular HGB Conc 30.8 g/dL (30.0-36.0); Mean Corpuscular Hemoglobin 27.5 pg (28.0-34.0); Mean Corpuscular Volume 89.2 fl (81-99); Mean Platelet Volume 10.8 fL (7.4-10.4); Monocytes # 0.6 10^3/uL (0.2-0.9); Monocytes % 6.8 %; Neutrophils # 6.18 10^3/uL (1.8-7.7); Neutrophils % 75.6 %; Nucleated Red Blood Cells % 0 %; Platelet Count 248 10^3/cmm (130-400); Red Blood Count 4.26 10^6/uL (4.1-5.3); Red Cell Distribution Width 14.6 % (12.1-15.1); White Blood Count 8.2 10^3/uL (4.0-10.0)
[2021-06-30 04:03] LABS: Alanine Aminotransferase 34 U/L (0-33); Alkaline Phosphatase 91 IU/L (35-105); Anion Gap 14.7 (5-19); Aspartate Amino Transferase 34 U/L (0-32); Blood Urea Nitrogen 13 mg/dL (6-20); C Reactive Protein 56.2 mg/L (0.0-4.9); Calcium 8.2 mg/dL (8.5-10.5); Carbon Dioxide 26 mmol/L (22-29); Chloride 101 mmol/L (98-107); Ferritin 353 ng/mL (15-150); Globulin 3.9 g/dL (1.3-4.6); Glomerular Filtration Rate 130.6 mL/min (90-130); Glucose 173 mg/dL (65-115); Magnesium 2.2 mg/dL (1.7-2.3); Osmolality Calculated 288 mOsm/kg (285-295); Phosphorus 2.7 mg/dL (2.5-4.5); Potassium 4.7 mmol/L (3.5-5.1); Sodium 137 mmol/L (136-145); Total Bilirubin 0.2 mg/dL (0.15-1.2); Total Protein 6.9 g/dL (6.6-8.7)
[2021-06-30 04:14] LABS: NT Pro B Type Natriuretic Pept 124 pg/mL (0-125); Procalcitonin 0.08 ng/mL (0-0.5)
[2021-06-30 04:26] LABS: Creatine Phosphokinase 71 U/L (26-192)
[2021-06-30 05:37] LABS: INR 1.08 (0.8-1.2)
[2021-06-30 05:41] LABS: D Dimer 2.99 ug/mIFEU (0-0.59)
--- NOTE | 2021-06-30 07:00 | XRR_ITS ---
PROCEDURE INFORMATION: Exam: XR Chest Exam date and time: 06/30/2021 7:00 AM Age: 50 years old Clinical indication: Shortness of breath; Additional info: SOB TECHNIQUE: Imaging protocol: XR of the chest. Views: 1 view. COMPARISON: CR (CHEST, ) 06/28/2021 7:59 AM FINDINGS: Lungs: Low lung volumes. Persistent bilateral airspace opacities. No large pleural effusion or pneumothorax. Pleural spaces: See Lungs finding. Heart/Mediastinum: Stable cardiomediastinal silhouette. Bones/joints: No acute osseous injury identified. Degenerative changes of the spine seen. XR/XR chest 1V portable [id number] IMPRESSION: Persistent bilateral airspace opacities. Radiation Dose CTDIVOL = (mGy): DLP = (mGy-cm)
[2021-06-30 07:23] LABS: Slide Review Slide Review Perform
[2021-06-30] MEDS: PARoxetine 20 mg Tablet 10 MG PO (08:07)
[2021-06-30] MEDS: levothyroxine 150 mcg Tablet PO (08:07)
[2021-06-30] MEDS: lisinopril 20 mg Tablet 40 MG PO (08:07)
[2021-06-30] MEDS: zinc gluconate 50 mg Tablet PO (08:07)
[2021-06-30] MEDS: ascorbic acid 500 mg Tablet 1000 MG PO ×2 (08:07→17:27)
[2021-06-30] MEDS: atorvastatin 40 mg Tablet 20 MG PO (08:07)
[2021-06-30] MEDS: FUROsemide 10 mg/mL SDV 4mL 40 MG IVP (10:00)
[2021-06-30] MEDS: enoxaparin 40 mg/0.4 mL Syringe SUBCUT ×2 (10:31→21:46)
[2021-06-30] MEDS: cefTRIAXone 1,000 MG in sodium chloride 0.9% (plus) 50 ML 100 MG IV (10:31)
[2021-06-30] MEDS: azithromycin 500 MG in sodium chloride 0.9% 250 ML 250 MG IV (11:21)
--- NOTE | 2021-06-30 11:55 | PM.PN ---
Subjective Subjective: Interval history: Patient was seen this morning, she tells me that she had a difficult night last night, she had difficulty falling asleep, she felt more short of breath, Vitals/I&O/Wt Last Vital Signs Temp 98.2 F 06/30/21 04:00 Pulse 85 06/30/21 11:28 Resp 19 H 06/30/21 11:28 BP 122/78 06/30/21 04:00 Pulse Ox 92 06/30/21 11:28 06/29/21 06/30/21 06/30/21 22:59 06:59 14:59 Intake Total 440 / 920 480 / 1400 50 / 50 Output Total 1360 / 1360 680 / 2040 Balance -920 / -440 -200 / -640 50 / 50 Weight last 48 hrs Weight 167.738 kg Physical Exam Const: COMMON NORMALS: no acute distress and patient oriented x3 Resp: COMMON NORMALS: normal respiratory effort, No retractions, No use of accessory muscles and clear to auscultation bilaterally AUSCULTATION: clear to auscultation bilaterally Cardio: COMMON NORMALS: regular rate, regular rhythm, S1 normal heart sound present and S2 normal heart sound present RATE: regular rate RHYTHM: regular rhythm HEART SOUNDS: S1 normal heart sound present and S2 normal heart sound present GI: COMMON NORMALS: Normal to inspection, nondistended, normoactive bowel sounds present, Soft to palpation and non-tender PALPATION: Yes Soft to palpation Extremity: COMMON NORMALS: no pedal edema Neuro: COMMON NORMALS: patient oriented x3 Psych: COMMON NORMALS: mental status grossly normal Urinary Catheter Management^: Munoz: Cath Placed During This Visit: no Reason for Continuing Indwelling Catheter: Accurate Measurement of Urinary Output in Critically Ill Patients Data : 06/30/21 02:56 06/30/21 02:56 Micro: Microbiology 06/28/21 10:45 Blood Culture - Preliminary Blood Staphylococcus sp coag neg 06/28/21 10:30 Blood Culture - Preliminary Blood NEGATIVE TO DATE A&P Assessment and plan (1) Pneumonia due to 2019 novel coronavirus: 50 year old female past medical history of hypertension and hypothyroidism, came in with chief complaint of worsening shortness of breath for the past 2 weeks, accompanied with cough with productive sputum, She was also complaining of subjective fever at home, as well as generalized body pain, fatigue, poor appetite. Currently on Covid protocol. CT angiogram unremarkable for pulmonary embolism Monitor inflammatory markers (ESR , CRP , D-dimer, LDH , ferritin ) Monitor x-ray chest, ABG Blood culture Dexamethasone 6 mg IV for 10 10 days Remdesivir 5 days Baricitinib day 2 of 14 Empirically on ceftriaxone and azithromycin Antitussives DuoNeb's Supplemental oxygen as needed Lovenox 40 every 12 for DVT prophylaxis 1 dose of Lasix today Ativan as needed for anxiety Status: Acute (2) Hypothyroidism: Continue levothyroxine Status: Acute (3) Hypertension: Continue lisinopril Status: Acute (4) Acute respiratory failure with hypoxia: Status: Acute Attestations Medical Necessity Statement*: Patient requires hospitalization for COVID-19 pneumonia Coding Level of Care Code Acute Medical Typist for [facility] Diagnoses Pneumonia due to 2019 novel coronavirus U07.1; J12.82 Hypothyroidism E03.9 Hypertension I10 Acute respiratory failure with hypoxia J96.01
[2021-06-30 12:19] LABS: ABG PCO2 44.1 mmHg (35-45); ABG PH Result 7.42 (7.35-7.45); Arterial Blood Gas Hematocrit 36.7 % (37-47); Base Excess ABG 3.7 mmol/L (-2.0-2.0); Blood Gas Allen Test Pos; Blood Gas Sample Site Radial, left; Blood Gas Sample Type Arterial; HCO3 ABG 28.7 mmol/L (22-26); PO2 ABG 60.5 mmHg (80.0-100.0)
[2021-06-30 12:20] LABS: Oxygen Device NC
[2021-06-30] MEDS: dexamethasone 4 mg/mL INJ 6 MG IVP (14:29)
[2021-06-30] MEDS: remdesivir 100 MG in sodium chloride 0.9% (100 ml) 80 ML IV (17:27)
[2021-07-01] VITALS (21 sets, daily range): BP systolic 146–164; BP diastolic 69–91; PULSE 66–93; RESP 18–27; TEMP 36–36.6; O2SAT 88–94
[2021-07-01 04:55] LABS: Basophils % 0.4 %; Hematocrit 37.1 % (37.0-47.0); Hemoglobin 11.4 g/dL (11.5-15.3); Lymphocytes # 1.6 10^3/uL (0.8-4.8); Lymphocytes % 17.3 %; Mean Corpuscular HGB Conc 30.7 g/dL (30.0-36.0); Mean Corpuscular Hemoglobin 26.8 pg (28.0-34.0); Mean Corpuscular Volume 87.3 fl (81-99); Mean Platelet Volume 10.4 fL (7.4-10.4); Monocytes # 0.7 10^3/uL (0.2-0.9); Monocytes % 7.6 %; Neutrophils # 6.13 10^3/uL (1.8-7.7); Neutrophils % 66.3 %; Nucleated Red Blood Cells % 0 %; Platelet Count 309 10^3/cmm (130-400); Red Blood Count 4.25 10^6/uL (4.1-5.3); Red Cell Distribution Width 14.7 % (12.1-15.1); White Blood Count 9.3 10^3/uL (4.0-10.0)
[2021-07-01] MEDS: ipratropium-albuterol 3 mL Neb INHALATION ×6 (05:09→23:40)
[2021-07-01 05:12] LABS: NT Pro B Type Natriuretic Pept 92 pg/mL (0-125); Procalcitonin 0.06 ng/mL (0-0.5)
[2021-07-01 05:23] LABS: Creatine Phosphokinase 40 U/L (26-192)
[2021-07-01 05:25] LABS: Alanine Aminotransferase 28 U/L (0-33); Albumin Level 3.3 g/dL (3.5-5.2); Alkaline Phosphatase 93 IU/L (35-105); Aspartate Amino Transferase 30 U/L (0-32); Blood Urea Nitrogen 16 mg/dL (6-20); Calcium 7.8 mg/dL (8.5-10.5); Carbon Dioxide 28 mmol/L (22-29); Chloride 101 mmol/L (98-107); Ferritin 284 ng/mL (15-150); Globulin 3.4 g/dL (1.3-4.6); Glomerular Filtration Rate 130.6 mL/min (90-130); Glucose 164 mg/dL (65-115); Magnesium 2.4 mg/dL (1.7-2.3); Osmolality Calculated 293 mOsm/kg (285-295); Phosphorus 3.3 mg/dL (2.5-4.5); Sodium 139 mmol/L (136-145); Total Bilirubin 0.3 mg/dL (0.15-1.2); Total Protein 6.7 g/dL (6.6-8.7)
[2021-07-01 05:29] LABS: ABG PCO2 50.3 mmHg (35-45); ABG PH Result 7.41 (7.35-7.45); Arterial Blood Gas Hematocrit 35.8 % (37-47); Base Excess ABG 5.9 mmol/L (-2.0-2.0); Blood Gas Allen Test Pos; Blood Gas Sample Site Radial, right; Blood Gas Sample Type Arterial; HCO3 ABG 31.6 mmol/L (22-26); Oxygen Device NC
[2021-07-01 06:35] LABS: D Dimer 0.96 ug/mIFEU (0-0.59)
[2021-07-01 06:44] LABS: Slide Review Slide Review Perform
[2021-07-01] MEDS: enoxaparin 40 mg/0.4 mL Syringe SUBCUT ×2 (09:59→21:25)
[2021-07-01] MEDS: zinc gluconate 50 mg Tablet PO (10:00)
[2021-07-01] MEDS: atorvastatin 40 mg Tablet 20 MG PO (10:00)
[2021-07-01] MEDS: ascorbic acid 500 mg Tablet 1000 MG PO ×2 (10:00→18:20)
[2021-07-01] MEDS: lisinopril 20 mg Tablet 40 MG PO (10:01)
[2021-07-01] MEDS: PARoxetine 20 mg Tablet 10 MG PO (10:02)
[2021-07-01] MEDS: levothyroxine 150 mcg Tablet PO (11:29)
[2021-07-01] MEDS: cefTRIAXone 1,000 MG in sodium chloride 0.9% (plus) 50 ML 100 MG IV (11:38)
[2021-07-01] MEDS: azithromycin 500 MG in sodium chloride 0.9% 250 ML 250 MG IV (12:12)
--- NOTE | 2021-07-01 15:29 | PM.PN ---
Subjective Subjective: Interval history: Patient was seen this morning, she is a bit tearful, she is concerned about her worsening respiratory status, she tells me that she sat up in the chair most of the day yesterday, she does feel more short of breath, currently on 50 L, denies any chest pain, no palpitations, no lightheadedness, no dizziness Vitals/I&O/Wt Last Vital Signs Temp 98 F 07/01/21 04:00 Pulse 77 07/01/21 11:17 Resp 18 07/01/21 11:17 BP 146/69 07/01/21 04:00 Pulse Ox 91 07/01/21 11:17 07/01/21 07/01/21 07/01/21 06:59 14:59 22:59 Intake Total 350 / 2236 50 / 50 Output Total 1800 / 2800 Balance -1450 / -564 50 / 50 Physical Exam Const: COMMON NORMALS: no acute distress and patient oriented x3 Resp: COMMON NORMALS: normal respiratory effort, No retractions, No use of accessory muscles and clear to auscultation bilaterally AUSCULTATION: clear to auscultation bilaterally Cardio: COMMON NORMALS: regular rate, regular rhythm, S1 normal heart sound present and S2 normal heart sound present RATE: regular rate RHYTHM: regular rhythm HEART SOUNDS: S1 normal heart sound present and S2 normal heart sound present GI: COMMON NORMALS: Normal to inspection, nondistended, normoactive bowel sounds present, Soft to palpation and non-tender PALPATION: Yes Soft to palpation Extremity: COMMON NORMALS: no pedal edema Neuro: COMMON NORMALS: patient oriented x3 Psych: COMMON NORMALS: mental status grossly normal Urinary Catheter Management^: Munoz: Cath Placed During This Visit: no Reason for Continuing Indwelling Catheter: Accurate Measurement of Urinary Output in Critically Ill Patients Data : 07/01/21 04:31 07/01/21 04:31 Micro: Microbiology 06/28/21 10:30 Blood Culture - Preliminary Blood Corynebacterium species 06/28/21 10:45 Blood Culture - Preliminary Blood Staphylococcus sp coag neg A&P Assessment and plan (1) Pneumonia due to 2019 novel coronavirus: 50 year old female past medical history of hypertension and hypothyroidism, came in with chief complaint of worsening shortness of breath for the past 2 weeks, accompanied with cough with productive sputum, She was also complaining of subjective fever at home, as well as generalized body pain, fatigue, poor appetite. Currently on Covid protocol. CT angiogram unremarkable for pulmonary embolism Monitor inflammatory markers (ESR , CRP , D-dimer, LDH , ferritin ) Monitor x-ray chest, ABG Blood culture negative so far Dexamethasone 6 mg IV for 10 days Remdesivir 5 days Baricitinib day 2 of 14 will be discontinued 1 dose Actemra today Empirically on ceftriaxone and azithromycin Antitussives DuoNeb's Currently on 15 L Lovenox 40 every 12 for DVT prophylaxis 1 dose of Lasix today Ativan as needed for anxiety Status: Acute (2) Hypothyroidism: Continue levothyroxine Status: Acute (3) Hypertension: Continue lisinopril Status: Acute (4) Acute respiratory failure with hypoxia: Status: Acute Attestations Medical Necessity Statement*: Patient requires hospitalization due to COVID-19 pneumonia Coding Level of Care Code Acute 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
[2021-07-01] MEDS: dexamethasone 4 mg/mL INJ 6 MG IVP (15:44)
[2021-07-01] MEDS: FUROsemide 10 mg/mL SDV 4mL 40 MG IVP (16:41)
[2021-07-01 17:07] LABS: Erythrocyte Sedimentation Rate 34 mm/hr (0-15)
[2021-07-01] MEDS: remdesivir 100 MG in sodium chloride 0.9% (100 ml) 80 ML IV (18:21)
--- NOTE | 2021-07-01 19:42 | PC.NURSE ---
shift summary:pt up in chair from 729 to 1829.improved o2 sats while up in chair...however with talking,moving..sats decrease to high 70's and low 80's..but soon recover.non-productive cough.denies pain.
[2021-07-02] VITALS (17 sets, daily range): BP systolic 109–141; BP diastolic 70–102; PULSE 70–89; RESP 16–30; TEMP 36.6–36.9; O2SAT 15–93
[2021-07-02 04:02] LABS: INR 1.14 (0.8-1.2)
[2021-07-02 04:07] LABS: D Dimer 0.93 ug/mIFEU (0-0.59)
[2021-07-02 04:10] LABS: Alanine Aminotransferase 25 U/L (0-33); Albumin Level 3.4 g/dL (3.5-5.2); Alkaline Phosphatase 102 IU/L (35-105); Anion Gap 13.7 (5-19); Aspartate Amino Transferase 22 U/L (0-32); Blood Urea Nitrogen 20 mg/dL (6-20); C Reactive Protein 26.7 mg/L (0.0-4.9); Calcium 8.1 mg/dL (8.5-10.5); Carbon Dioxide 29 mmol/L (22-29); Chloride 97 mmol/L (98-107); Ferritin 246 ng/mL (15-150); Globulin 3.8 g/dL (1.3-4.6); Glomerular Filtration Rate 130.6 mL/min (90-130); Glucose 221 mg/dL (65-115); Magnesium 2.3 mg/dL (1.7-2.3); Osmolality Calculated 289 mOsm/kg (285-295); Phosphorus 3.6 mg/dL (2.5-4.5); Potassium 4.7 mmol/L (3.5-5.1); Sodium 135 mmol/L (136-145); Total Bilirubin 0.3 mg/dL (0.15-1.2); Total Protein 7.2 g/dL (6.6-8.7)
[2021-07-02] MEDS: ipratropium-albuterol 3 mL Neb INHALATION ×6 (04:18→23:28)
[2021-07-02 04:25] LABS: NT Pro B Type Natriuretic Pept 71 pg/mL (0-125); Procalcitonin 0.05 ng/mL (0-0.5)
[2021-07-02 04:36] LABS: Creatine Phosphokinase 26 U/L (26-192)
[2021-07-02 05:27] LABS: ABG PCO2 47.3 mmHg (35-45); ABG PH Result 7.42 (7.35-7.45); Arterial Blood Gas Hematocrit 37.9 % (37-47); Base Excess ABG 5.3 mmol/L (-2.0-2.0); Blood Gas Allen Test Pos; Blood Gas Operator Identificat Anonymous; Blood Gas Sample Type Arterial; HCO3 ABG 30.7 mmol/L (22-26); PO2 ABG 58.8 mmHg (80.0-100.0)
[2021-07-02 05:28] LABS: Blood Gas Sample Site Radial, right; Oxygen Device NC
--- NOTE | 2021-07-02 05:53 | PC.NURSE ---
Frequent safety and comfort rounds continue. Orders and/or nursing care completed as indicated. Patient monitored for response to intervention and treatment). Education provided includes leaving oxygen into both nasal passages to ensure proper oxygenation Patient and/or welding equipment sales representative verbalize understanding. Will continue to monitor.
[2021-07-02 07:14] LABS: Hematocrit 38.4 % (37.0-47.0); Hemoglobin 11.9 g/dL (11.5-15.3); Mean Corpuscular Hemoglobin 27.5 pg (28.0-34.0); Mean Corpuscular Volume 88.7 fl (81-99); Mean Platelet Volume 10.4 fL (7.4-10.4); Red Blood Count 4.33 10^6/uL (4.1-5.3); Red Cell Distribution Width 14.6 % (12.1-15.1); White Blood Count 11.7 10^3/uL (4.0-10.0)
[2021-07-02 07:29] LABS: Slide Review Slide Review Perform
[2021-07-02 07:31] LABS: Absolute Neutrophil 9.1 10^3/cmm (1.4-6.5); Absolute Segmented Neutrophil 8.1 10/cmm (1.6-7.1); Band Neutrophils Absolute 1.1 10^3/cmm (0.0-1.2); Eosinophils 0 %; Lymphocytes 10 %; Lymphocytes Absolute 1.2 10^3/cmm (1.2-3.4); Monocytes Absolute 0.6 10^3/cmm (0.1-0.6); Platelet Count 250 10^3/cmm (130-400); Platelet Estimate Normal (Normal); Segmented Neutrophils 69 %; Total Cells Counted 100 (0-100)
[2021-07-02] MEDS: zinc gluconate 50 mg Tablet PO (07:56)
[2021-07-02] MEDS: ascorbic acid 500 mg Tablet 1000 MG PO ×2 (07:56→18:23)
[2021-07-02] MEDS: lisinopril 20 mg Tablet 40 MG PO (07:56)
[2021-07-02] MEDS: levothyroxine 150 mcg Tablet PO (07:57)
[2021-07-02] MEDS: PARoxetine 20 mg Tablet 10 MG PO (07:57)
[2021-07-02] MEDS: atorvastatin 40 mg Tablet 20 MG PO (07:58)
[2021-07-02] MEDS: FUROsemide 10 mg/mL SDV 4mL 40 MG IVP (09:57)
[2021-07-02] MEDS: enoxaparin 40 mg/0.4 mL Syringe SUBCUT ×2 (09:57→22:13)
[2021-07-02] MEDS: cefTRIAXone 1,000 MG in sodium chloride 0.9% (plus) 50 ML 100 MG IV (11:09)
--- NOTE | 2021-07-02 12:28 | P.PN_ITS ---
Subjective Subjective: Interval history: Patient was seen this morning, she tells me that she is feeling a lot better, no nausea, no vomiting, no lightheadedness, no dizziness, she is on 15 L Vitals/I&O/Wt Last Vital Signs Temp 97.8 F 07/02/21 09:14 Pulse 71 07/02/21 09:14 Resp 17 07/02/21 09:14 BP 109/78 07/02/21 09:14 Pulse Ox 92 07/02/21 09:14 07/01/21 07/02/21 07/02/21 22:59 06:59 14:59 Intake Total 100 / 760 300 / 1060 236 / 236 Output Total 2800 / 3250 900 / 4150 Balance -2700 / -2490 -600 / -3090 236 / 236 Physical Exam Const: COMMON NORMALS: no acute distress and patient oriented x3 Resp: COMMON NORMALS: normal respiratory effort, No retractions, No use of accessory muscles and clear to auscultation bilaterally AUSCULTATION: clear to auscultation bilaterally Cardio: COMMON NORMALS: regular rate, regular rhythm, S1 normal heart sound present and S2 normal heart sound present RATE: regular rate RHYTHM: regular rhythm HEART SOUNDS: S1 normal heart sound present and S2 normal heart sound present GI: COMMON NORMALS: Normal to inspection, nondistended, normoactive bowel sounds present, Soft to palpation and non-tender PALPATION: Yes Soft to palpation Extremity: COMMON NORMALS: no pedal edema Neuro: COMMON NORMALS: patient oriented x3 Psych: COMMON NORMALS: mental status grossly normal Urinary Catheter Management^: Munoz: Cath Placed During This Visit: no Reason for Continuing Indwelling Catheter: Accurate Measurement of Urinary Output in Critically Ill Patients Data : 07/02/21 03:16 07/02/21 03:16 Micro: Microbiology 06/28/21 10:30 Blood Culture - Preliminary Blood Corynebacterium species A&P Assessment and plan (1) Pneumonia due to 2019 novel coronavirus: 50 year old female past medical history of hypertension and hypothyroidism, came in with chief complaint of worsening shortness of breath for the past 2 weeks, accompanied with cough with productive sputum, She was also complaining of subjective fever at home, as well as generalized body pain, fatigue, poor appetite. Currently on Covid protocol. CT angiogram unremarkable for pulmonary embolism Monitor inflammatory markers (ESR , CRP , D-dimer, LDH , ferritin ) Monitor x-ray chest, ABG Blood culture negative so far Dexamethasone 6 mg IV for 10 days Remdesivir 5 days Baricitinib day 2 of 14 will be discontinued 1 dose Actemra 07/01/2021 Empirically on ceftriaxone and azithromycin Antitussives DuoNeb's Currently on 15 L Lovenox 40 every 12 for DVT prophylaxis 1 dose of Lasix today Ativan as needed for anxiety Status: Acute (2) Hypothyroidism: Continue levothyroxine Status: Acute (3) Hypertension: Continue lisinopril Status: Acute (4) Acute respiratory failure with hypoxia: Status: Acute Attestations Medical Necessity Statement*: Patient requires hospitalization for COVID-19 pneumonia Coding Level of Care Code Acute 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
[2021-07-02] MEDS: azithromycin 500 MG in sodium chloride 0.9% 250 ML 250 MG IV (12:46)
[2021-07-02] MEDS: dexamethasone 4 mg/mL INJ 6 MG IVP (12:57)
[2021-07-02 14:36] LABS: Erythrocyte Sedimentation Rate 33 mm/hr (0-15)
[2021-07-02] MEDS: remdesivir 100 MG in sodium chloride 0.9% (100 ml) 80 ML IV (18:22)
[2021-07-03] VITALS (17 sets, daily range): BP systolic 119–167; BP diastolic 44–82; PULSE 67–90; RESP 17–20; TEMP 36.2–36.8; O2SAT 15–97
[2021-07-03] MEDS: ipratropium-albuterol 3 mL Neb INHALATION ×5 (03:55→20:06)
[2021-07-03 03:57] LABS: Basophils # 0.1 10^3/uL (0.0-0.1); Basophils % 0.8 %; Eosinophils % 0.2 %; Hematocrit 39.4 % (37.0-47.0); Hemoglobin 12.2 g/dL (11.5-15.3); Lymphocytes # 1.6 10^3/uL (0.8-4.8); Lymphocytes % 10.5 %; Mean Corpuscular Hemoglobin 27.5 pg (28.0-34.0); Mean Corpuscular Volume 88.7 fl (81-99); Mean Platelet Volume 10.3 fL (7.4-10.4); Monocytes # 0.8 10^3/uL (0.2-0.9); Monocytes % 5.5 %; Neutrophils # 10.21 10^3/uL (1.8-7.7); Neutrophils % 68.4 %; Nucleated Red Blood Cells % 0 %; Platelet Count 382 10^3/cmm (130-400); Red Blood Count 4.44 10^6/uL (4.1-5.3); Red Cell Distribution Width 14.6 % (12.1-15.1); White Blood Count 14.9 10^3/uL (4.0-10.0)
[2021-07-03 04:13] LABS: INR 1.09 (0.8-1.2)
[2021-07-03 04:22] LABS: Alanine Aminotransferase 25 U/L (0-33); Albumin Level 3.5 g/dL (3.5-5.2); Alkaline Phosphatase 98 IU/L (35-105); Anion Gap 13.9 (5-19); Aspartate Amino Transferase 22 U/L (0-32); Blood Urea Nitrogen 21 mg/dL (6-20); Calcium 8.1 mg/dL (8.5-10.5); Carbon Dioxide 30 mmol/L (22-29); Chloride 97 mmol/L (98-107); Globulin 3.5 g/dL (1.3-4.6); Glomerular Filtration Rate 88.6 mL/min (90-130); Glucose 202 mg/dL (65-115); Osmolality Calculated 291 mOsm/kg (285-295); Potassium 4.9 mmol/L (3.5-5.1); Sodium 136 mmol/L (136-145); Total Bilirubin 0.3 mg/dL (0.15-1.2)
[2021-07-03 04:25] LABS: C Reactive Protein 15.9 mg/L (0.0-4.9); Magnesium 2.3 mg/dL (1.7-2.3); Phosphorus 3.3 mg/dL (2.5-4.5)
[2021-07-03 04:35] LABS: NT Pro B Type Natriuretic Pept 62 pg/mL (0-125); Procalcitonin 0.05 ng/mL (0-0.5)
[2021-07-03 04:45] LABS: Creatine Phosphokinase 29 U/L (26-192)
[2021-07-03 04:56] LABS: ABG PCO2 48.6 mmHg (35-45); ABG PH Result 7.41 (7.35-7.45); Arterial Blood Gas Hematocrit 37.7 % (37-47); Base Excess ABG 4.9 mmol/L (-2.0-2.0); Blood Gas Allen Test Pos; Blood Gas Sample Site Radial, right; Blood Gas Sample Type Arterial; HCO3 ABG 30.5 mmol/L (22-26); PO2 ABG 67.7 mmHg (80.0-100.0)
[2021-07-03 04:57] LABS: Oxygen Device NC
--- NOTE | 2021-07-03 05:59 | PC.NURSE ---
Frequent safety and comfort rounds continue. Orders and/or nursing care completed as indicated. Patient monitored for response to intervention and treatment(s). Education provided includes oxygen safety. Patient and/or marketing sales representative verbalizes understanding. Will continue to monitor.
--- NOTE | 2021-07-03 07:00 | XR_ITS ---
WS: [id number] Portable AP semiupright chest, 07/03/2021 Clinical Data: sob Comparison: Portable chest, 06/30/2021. Findings: The bilateral patchy opacities in both lungs remain the same. The patient has a poor inspir atory effort. The heart is enlarged. No nodules, masses or effusions are seen. No pneumothorax is pre sent. There are monitor leads on the chest wall. XR/XR chest 1V portable [id number] Impression: No change in bilateral pulmonary opacities.
[2021-07-03 07:24] LABS: Slide Review Slide Review Perform
[2021-07-03] MEDS: ascorbic acid 500 mg Tablet 1000 MG PO ×2 (08:38→17:46)
[2021-07-03] MEDS: PARoxetine 20 mg Tablet 10 MG PO (08:38)
[2021-07-03] MEDS: zinc gluconate 50 mg Tablet PO (08:38)
[2021-07-03] MEDS: lisinopril 20 mg Tablet 40 MG PO (08:39)
[2021-07-03] MEDS: levothyroxine 150 mcg Tablet PO (08:39)
[2021-07-03] MEDS: atorvastatin 40 mg Tablet 20 MG PO (08:39)
[2021-07-03] MEDS: cefTRIAXone 1,000 MG in sodium chloride 0.9% (plus) 50 ML 100 MG IV (10:00)
[2021-07-03] MEDS: enoxaparin 40 mg/0.4 mL Syringe SUBCUT ×2 (10:51→22:00)
[2021-07-03] MEDS: azithromycin 500 MG in sodium chloride 0.9% 250 ML 250 MG IV (10:52)
[2021-07-03] MEDS: dexamethasone 4 mg/mL INJ 6 MG IVP (15:43)
[2021-07-03 16:43] LABS: Erythrocyte Sedimentation Rate 33 mm/hr (0-15)
--- NOTE | 2021-07-03 16:58 | P.PN_ITS ---
Subjective Subjective: Interval history: Patient was seen this morning, she is down to 8 L, she is has smiling and very happy with her progress, she tells me that she sat in the chair all day yesterday till 11 PM she is a bit tired this morning, Vitals/I&O/Wt Last Vital Signs Temp 98.0 F 07/03/21 04:00 Pulse 89 07/03/21 16:56 Resp 18 07/03/21 16:56 BP 141/72 07/03/21 16:28 Pulse Ox 85 L 07/03/21 16:56 07/03/21 07/03/21 07/03/21 06:59 14:59 22:59 Intake Total 120 / 1248 286 / 286 250 / 536 Output Total 1200 / 3600 Balance -1080 / -2352 286 / 286 250 / 536 Physical Exam Const: COMMON NORMALS: no acute distress and patient oriented x3 Resp: COMMON NORMALS: normal respiratory effort, No retractions, No use of accessory muscles and clear to auscultation bilaterally AUSCULTATION: clear to auscultation bilaterally Cardio: COMMON NORMALS: regular rate, regular rhythm, S1 normal heart sound present and S2 normal heart sound present RATE: regular rate RHYTHM: regular rhythm HEART SOUNDS: S1 normal heart sound present and S2 normal heart sound present GI: COMMON NORMALS: Normal to inspection, nondistended, normoactive bowel sounds present, Soft to palpation and non-tender PALPATION: Yes Soft to palpation Extremity: COMMON NORMALS: no pedal edema Neuro: COMMON NORMALS: patient oriented x3 Psych: COMMON NORMALS: mental status grossly normal Urinary Catheter Management^: Munoz: Cath Placed During This Visit: no Reason for Continuing Indwelling Catheter: Acute Urinary Retention or Obstruction Data : 07/03/21 03:15 07/03/21 03:15 Micro: Microbiology 06/28/21 10:30 Blood Culture - Final Blood Corynebacterium species 06/28/21 10:45 Blood Culture - Final Blood Staphylococcus sp coag neg A&P Assessment and plan (1) Pneumonia due to 2019 novel coronavirus: 50 year old female past medical history of hypertension and hypothyroidism, came in with chief complaint of worsening shortness of breath fo r the past 2 weeks, accompanied with cough with productive sputum, She was also complaining of subjective fever at home, as well as generalized body pain, fatigue, poor appetite. Currently on Covid protocol. CT angiogram unremarkable for pulmonary embolism Monitor inflammatory markers (ESR , CRP , D-dimer, LDH , ferritin ) Monitor x-ray chest, ABG Blood culture negative so far Dexamethasone 6 mg IV for 10 days Completed remdesivir 5 days Baricitinib day 2 of 14 will be discontinued 1 dose Actemra 07/01/2021 Empirically on ceftriaxone and azithromycin Antitussives DuoNeb's Currently on 8 L Lovenox 40 every 12 for DVT prophylaxis Hold off on Lasix today Ativan as needed for anxiety Status: Acute (2) Hypothyroidism: Continue levothyroxine Status: Acute (3) Hypertension: Continue lisinopril Status: Acute (4) Acute respiratory failure with hypoxia: Status: Acute Attestations Medical Necessity Statement*: Patient requires hospitalization for pneumonia secondary COVID-19 Coding Level of Care Code Acute 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
[2021-07-04] VITALS (9 sets, daily range): BP systolic 140–165; BP diastolic 66–75; PULSE 60–83; RESP 16–19; TEMP 36; O2SAT 87–98
[2021-07-04] MEDS: ipratropium-albuterol 3 mL Neb INHALATION ×2 (03:17→08:29)
[2021-07-04 03:45] LABS: ABG PCO2 47.8 mmHg (35-45); ABG PH Result 7.42 (7.35-7.45); Arterial Blood Gas Hematocrit 38.2 % (37-47); Base Excess ABG 5.6 mmol/L (-2.0-2.0); Blood Gas Allen Test Pos; Blood Gas Sample Site Radial, left; Blood Gas Sample Type Arterial; Oxygen Device NC; PO2 ABG 50.4 mmHg (80.0-100.0)
--- NOTE | 2021-07-04 04:52 | PC.NURSE ---
Frequent safety and comfort rounds continue. Orders and/or nursing care completed as indicated. Patient monitored for response to intervention and treatment(s). Education provided includes oxygen safety and being aware of pak catheter when attempting to ambulate. Patient and/or door to door sales representative verbalized understanding. Will continue to monitor.
[2021-07-04 06:24] LABS: NT Pro B Type Natriuretic Pept 67 pg/mL (0-125); Procalcitonin 0.03 ng/mL (0-0.5)
[2021-07-04 06:37] LABS: Alanine Aminotransferase 24 U/L (0-33); Albumin Level 3.5 g/dL (3.5-5.2); Alkaline Phosphatase 83 IU/L (35-105); Anion Gap 16.4 (5-19); Aspartate Amino Transferase 20 U/L (0-32); Blood Urea Nitrogen 20 mg/dL (6-20); C Reactive Protein 7.3 mg/L (0.0-4.9); Calcium 7.9 mg/dL (8.5-10.5); Carbon Dioxide 26 mmol/L (22-29); Chloride 97 mmol/L (98-107); Creatine Phosphokinase 35 U/L (26-192); Globulin 2.8 g/dL (1.3-4.6); Glomerular Filtration Rate 130.6 mL/min (90-130); Glucose 191 mg/dL (65-115); Magnesium 2.4 mg/dL (1.7-2.3); Osmolality Calculated 286 mOsm/kg (285-295); Phosphorus 3.3 mg/dL (2.5-4.5); Potassium 5.4 mmol/L (3.5-5.1); Sodium 134 mmol/L (136-145); Total Bilirubin 0.3 mg/dL (0.15-1.2); Total Protein 6.3 g/dL (6.6-8.7)
[2021-07-04 08:22] LABS: Hematocrit 40.8 % (37.0-47.0); Hemoglobin 12.2 g/dL (11.5-15.3); Mean Corpuscular HGB Conc 29.9 g/dL (30.0-36.0); Mean Corpuscular Volume 90.3 fl (81-99); Mean Platelet Volume 10.4 fL (7.4-10.4); Platelet Count 293 10^3/cmm (130-400); Red Blood Count 4.52 10^6/uL (4.1-5.3); Red Cell Distribution Width 14.5 % (12.1-15.1); White Blood Count 15.1 10^3/uL (4.0-10.0)
[2021-07-04] MEDS: ascorbic acid 500 mg Tablet 1000 MG PO (08:35)
[2021-07-04] MEDS: zinc gluconate 50 mg Tablet PO (08:35)
[2021-07-04] MEDS: atorvastatin 40 mg Tablet 20 MG PO (08:35)
[2021-07-04] MEDS: PARoxetine 20 mg Tablet 10 MG PO (08:35)
[2021-07-04] MEDS: levothyroxine 150 mcg Tablet PO (08:36)
[2021-07-04] MEDS: lisinopril 20 mg Tablet 40 MG PO (08:36)
[2021-07-04 08:47] LABS: Slide Review Slide Review Perform
[2021-07-04 08:50] LABS: Absolute Eosinophils 0.1 10^3/cmm (0.0-0.7); Absolute Segmented Neutrophil 11.3 10/cmm (1.6-7.1); Band Neutrophils Absolute 0.9 10^3/cmm (0.0-1.2); Eosinophils 1 %; Lymphocytes 9 %; Lymphocytes Absolute 1.4 10^3/cmm (1.2-3.4); Monocytes Absolute 0.8 10^3/cmm (0.1-0.6); Segmented Neutrophils 75 %; Total Cells Counted 100 (0-100)
[2021-07-04 08:51] LABS: Absolute Neutrophil 12.2 10^3/cmm (1.4-6.5); Anisocytosis 1+; Giant Platelets Trace; Platelet Estimate Normal (Normal); Polychromasia Trace
[2021-07-04] MEDS: cefTRIAXone 1,000 MG in sodium chloride 0.9% (plus) 50 ML 100 MG IV (11:48)
[2021-07-04] MEDS: enoxaparin 40 mg/0.4 mL Syringe SUBCUT (11:48)
[2021-07-04] MEDS: FUROsemide 10 mg/mL SDV 4mL 40 MG IVP (12:53)
[2021-07-04] MEDS: azithromycin 500 MG in sodium chloride 0.9% 250 ML 250 MG IV (13:03)
[2021-07-04] MEDS: dexamethasone 4 mg/mL INJ 6 MG IVP (14:11)
--- NOTE | 2021-07-04 14:12 | PM.DCS ---
Discharge Providers Date of Admission: 06/28/21 10:01 Date of Discharge: July 04, 2021 Attending Provider at Admission: Gabriel Laureano MD Attending Provider at Discharge: Nima Galvan MD Primary Care Provider: Brigitte Morales APN Diagnoses at Discharge Discharge Diagnosis (1) Pneumonia due to 2019 novel coronavirus: Status: Acute (2) Hypothyroidism: Status: Acute (3) Hypertension: Status: Acute (4) Acute respiratory failure with hypoxia: Status: Acute Reason for Visit Reason for Visit: SOB Hospital Course Hospital Course This is a 50-year-old female with a past medical history of hypothyroidism, hypertension, who presents to [facility] due to cough, shortness of breath Patient was admitted to [facility] for acute hypoxic respiratory failure secondary COVID-19 pneumonia, treated with remdesivir, Decadron, CT angiogram negative for pulmonary emboli, received 2 doses of baricitinib, 1 dose of Actemra, broad-spectrum antibiotic therapy, clinically improved to 3 L at rest, 5 L with exertion, ambulating without significant symptomatology. Discharged with albuterol, Advair, Tessalon Perles, doxycycline, anti-inflammatory medications. Patient was advised to continue to self isolate, socially distance, facemask, hand wash for 21 days since symptom onset. Patient was also advised to discuss with primary care provider about COVID-19 vaccination within least 1 month For hypercoagulability prophylaxis for COVID-19, patient was advised she is at increased risk of hypercoagulability events associated COVID-19, was fairly mobile during her hospitalization, continue to remain mobile, we have decided not to place her on anticoagulation, discussed risks and benefits, she voiced understanding, and all questions answered, will not placed on anticoagulation for now. For now monitor for signs of DVT or pulmonary embolism and if any concerning symptoms go to the emergency room or call 911 Physical Exam Const: COMMON NORMALS: no acute distress and patient oriented x3 Resp: COMMON NORMALS: normal respiratory effort, No retractions, No use of accessory muscles and clear to auscultation bilaterally AUSCULTATION: clear to auscultation bilaterally Cardio: COMMON NORMALS: regular rate, regular rhythm, S1 normal heart sound present and S2 normal heart sound present RATE: regular rate RHYTHM: regular rhythm HEART SOUNDS: S1 normal heart sound present and S2 normal heart sound present GI: COMMON NORMALS: Normal to inspection, nondistended, normoactive bowel sounds present, Soft to palpation and non-tender PALPATION: Yes Soft to palpation Extremity: COMMON NORMALS: no pedal edema Neuro: COMMON NORMALS: patient oriented x3 Psych: COMMON NORMALS: mental status grossly normal Urinary Catheter Management^: Munoz: Cath Placed During This Visit: no Reason for Continuing Indwelling Catheter: Acute Urinary Retention or Obstruction Discharge Data Data Completed and Pending: Completed Studies During Hospitalization Category Date Time Status CT angio chest PE protcl [id number] Stat Cat Scan 06/28/21 09:11 Completed XR chest 1V giovanny ble [id number] Routine Exams 06/30/21 07:00 Completed XR chest 1V giovanny ble [id number] Routine Exams 07/03/21 07:00 Completed XR chest 1V giovanny ble [id number] Stat Exams 06/28/21 07:52 Completed Pending at discharge Category Date Time Status Arterial Blood Ga s W/O Coox AM LABS Lab 07/05/21 04:00 Ordered Blood Culture Sta t Lab 07/03/21 17:55 Results C Reactive Protei n AM LABS Lab 07/05/21 04:00 Ordered Creatine Phosphok inase AM LABS Lab 07/05/21 04:00 Ordered Magnesium AM LABS Lab 07/05/21 04:00 Ordered NT Pro B Type [place] riuretic Pept QAM Lab 07/05/21 06:00 Ordered Phosphorus AM LAB S Lab 07/05/21 04:00 Ordered Procalcitonin AM LABS Lab 07/05/21 04:00 Ordered Prothrombin Time INR AM LABS Lab 07/05/21 04:00 Ordered Labs from last 24 hours 07/04/21 07/04/21 07/04/21 08:50 08:00 05:18 WBC 15.1 H Corrected WBC RBC 4.52 Hgb 12.2 Hct 40.8 MCV 90.3 MCH 27.0 L MCHC 29.9 L RDW 14.5 Plt Count 293 MPV 10.4 Gran % Neut % (Auto) Lymph % (Auto) Not Reportable [place] % (Auto) Not Reportable Eos % (Auto) Baso % (Auto) Neut # (Auto) Lymph # (Auto) Not Reportable [place] # (Auto) Not Reportable Eos # (Auto) Baso # (Auto) Absolute Gran (aut o) Nucleated RBC % (a uto) Total Counted 100 Atypical Lymphs % 0.0 Absolute Neutrophi ls 12.2 H Segmented Neutroph ils 75 Abs Segm Neuts (Ma n) 11.3 H Band Neutrophils 6.0 Abs Band Neuts (Ma n) 0.9 Absolute Lymphocyt es 1.4 Lymphocytes (Manua l) 9 Monocytes (Manual) 5.0 Absolute Monocytes 0.8 H Eosinophils (Manua l) 1 Absolute Eosinophi ls 0.1 Basophils (Manual) 0.0 Absolute Basophils 0.0 Metamyelocytes 2.0 Myelocytes 1.0 Promyelocytes 1.0 Nucleated RBCs # Platelet Estimate Normal Giant Platelets Trace Polychromasia Trace Anisocytosis 1+ H ESR PT 13.50 INR 1.00 Specimen Type Sample Site ABG pH ABG pCO2 ABG pO2 ABG HCO3 ABG Base Excess Matt Test Hematocrit O2 Delivery Device O2 Liters/Min Security Assurance Analyst ID Sodium Potassium Chloride Carbon Dioxide Anion Gap BUN Creatinine GFR Calculation Glucose Calculated Osmolal ity Calcium Phosphorus Magnesium Total Bilirubin AST ALT Alkaline Phosphata se Creatine Kinase Cancelled C-Reactive Protein NT-Pro-B Natriuret Pep Cancelled Total Protein Albumin Globulin Procalcitonin Cancelled 07/04/21 07/04/21 07/04/21 05:18 05:18 05:18 WBC Corrected WBC RBC Hgb Hct MCV MCH MCHC RDW Plt Count MPV Gran % Neut % (Auto) Lymph % (Auto) [place] % (Auto) Eos % (Auto) Baso % (Auto) Neut # (Auto) Lymph # (Auto) [place] # (Auto) Eos # (Auto) Baso # (Auto) Absolute Gran (aut o) Nucleated RBC % (a uto) Total Counted Atypical Lymphs % Absolute Neutrophi ls Segmented Neutroph ils Abs Segm Neuts (Ma n) Band Neutrophils Abs Band Neuts (Ma n) Absolute Lymphocyt es Lymphocytes (Manua l) Monocytes (Manual) Absolute Monocytes Eosinophils (Manua l) Absolute Eosinophi ls Basophils (Manual) Absolute Basophils Metamyelocytes Myelocytes Promyelocytes Nucleated RBCs # Platelet Estimate Giant Platelets Polychromasia Anisocytosis ESR PT Cancelled INR Cancelled Specimen Type Sample Site ABG pH ABG pCO2 ABG pO2 ABG HCO3 ABG Base Excess Matt Test Hematocrit O2 Delivery Device O2 Liters/Min Security Assurance Analyst ID Sodium 134 L Potassium 5.4 H Chloride 97 L Carbon Dioxide 26 Anion Gap 16.4 BUN 20 Creatinine 0.5 GFR Calculation 130.6 H Glucose 191 H Calculated Osmolal ity 286 Calcium 7.9 L Phosphorus Cancelled 3.3 Magnesium Cancelled 2.4 H Total Bilirubin 0.3 AST 20 ALT 24 Alkaline Phosphata se 83 Creatine Kinase 35 C-Reactive Protein Cancelled 7.3 H NT-Pro-B Natriuret Pep 67 Total Protein 6.3 L Albumin 3.5 Globulin 2.8 Procalcitonin 0.03 07/04/21 07/04/21 07/01/21 05:18 03:33 04:31 WBC Cancelled Corrected WBC Cancelled RBC Cancelled Hgb Cancelled Hct Cancelled MCV Cancelled MCH Cancelled MCHC Cancelled RDW Cancelled Plt Count Cancelled MPV Cancelled Gran % Cancelled Neut % (Auto) Cancelled Lymph % (Auto) Cancelled [place] % (Auto) Cancelled Eos % (Auto) Cancelled Baso % (Auto) Cancelled Neut # (Auto) Cancelled Lymph # (Auto) Cancelled [place] # (Auto) Cancelled Eos # (Auto) Cancelled Baso # (Auto) Cancelled Absolute Gran (aut o) Cancelled Nucleated RBC % (a uto) Cancelled Total Counted Atypical Lymphs % Absolute Neutrophi ls Segmented Neutroph ils Abs Segm Neuts (Ma n) Band Neutrophils Abs Band Neuts (Ma n) Absolute Lymphocyt es Lymphocytes (Manua l) Monocytes (Manual) Absolute Monocytes Eosinophils (Manua l) Absolute Eosinophi ls Basophils (Manual) Absolute Basophils Metamyelocytes Myelocytes Promyelocytes Nucleated RBCs # Cancelled Platelet Estimate Giant Platelets Polychromasia Anisocytosis ESR 33 H PT INR Specimen Type Arterial Sample Site Radial, left ABG pH 7.42 ABG pCO2 47.8 H ABG pO2 50.4 L ABG HCO3 31.0 H ABG Base Excess 5.6 H Matt Test Pos Hematocrit 38.2 O2 Delivery Device Nc O2 Liters/Min 6.0 Security Assurance Analyst ID Buttr Sodium Potassium Chloride Carbon Dioxide Anion Gap BUN Creatinine GFR Calculation Glucose Calculated Osmolal ity Calcium Phosphorus Magnesium Total Bilirubin AST ALT Alkaline Phosphata se Creatine Kinase C-Reactive Protein NT-Pro-B Natriuret Pep Total Protein Albumin Globulin Procalcitonin Vitals: Last Vital Signs Temp 96.8 F L 07/04/21 08:00 Pulse 83 07/04/21 13:49 Resp 19 H 07/04/21 13:49 BP 140/75 07/04/21 13:49 Pulse Ox 93 07/04/21 13:49 Discharge Plan Discharge Patient Disposition: Home Condition: Stable Prescriptions: New ascorbic acid (vitamin C) [Vitamin C] 500 mg Tablet 1,000 mg PO BID 30 Days Qty: 120 RF: 0 fluticasone propion-salmeterol [Advair Diskus] 250-50 mcg/dose Blister With Device 1 ea inhalation BID.RESPIRATORY Qty: 60 RF: 0 benzonatate 100 mg Capsule 100 mg PO Q6H PRN (Reason: Cough) 14 Days Qty: 42 RF: 0 albuterol sulfate 90 mcg/actuation HFA aerosol inhaler 1 inh inhalation Q6H PRN (Reason: shortness of breath or wheezing) Qty: 8.5 RF: 0 cholecalciferol (vitamin D3) [Vitamin D3] 25 mcg (1,000 unit) tablet 1,000 unit PO DAILY 30 Days Qty: 30 RF: 0 zinc gluconate 50 mg Tablet 50 mg PO DAILY 30 Days Qty: 30 RF: 0 doxycycline hyclate 100 mg tablet 100 mg PO BID 7 Days Qty: 14 RF: 0 Continued paroxetine HCl 10 mg tablet 10 mg PO DAILY RF: 0 Euthyrox 150 mcg tablet 150 mcg PO DAILY RF: 0 lovastatin 20 mg tablet 20 mg PO DAILY RF: 0 lisinopril 40 mg tablet 40 mg PO DAILY RF: 0 Discharge Orders: Discharge Order (Routine); Ordered 07/04/21 Ordered By: Nima Galvan Other Ambulatory Orders: DME: Oxygen (Order) Location: None Selected Ordered By: Nima Galvan DME: Walker (Order) Location: None Selected Ordered By: Nima Galvan [facility]: [facility] [place] Brigitte Morales APN [Primary Care Provider] - Discharge Diet: Cardiac Discharge Activity: Resume usual activity Patient Instructions: Opioid Safety Activity Restrictions/Additional Instructions: -Please continue to be mobile -Monitor for signs of blood clots if so go to the emergency room -Please hydrate well -Please discuss with primary care provider about Covid vaccination within a month -Please continue self isolate, socially distance, facemask, hand wash Discharge Attestations Time Spent in Discharge Care*: less than 30 min Quality Metrics Clinical Quality Measures During this hospital stay, did patient experience: None Coding Level of Care Code Acute Chg FW DC note Diagnoses Pneumonia due to 2019 novel coronavirus U07.1; J12.82 Hypothyroidism E03.9 Hypertension I10 Acute respiratory failure with hypoxia J96.01
--- NOTE | 2021-07-04 15:26 | PC.NURSE ---
pt education provided, no questions or concerns. Oxygen was delivered, VS are stable upon departure.
== END 2021-07-04 15:29 | disposition home or self-care (01) | DRG 177 ==
LOC: ER 12:34 → CSU 12:43
PROVIDERS: Admitting Provider Internal Medicine; Emergency Provider Emergency Medicine; PCP Nurse Practitioner; Visit Provider Family Medicine
DX: U07.1 COVID-19 (principal); J12.82 Pneumonia due to coronavirus disease 2019; J96.01 Acute respiratory failure with hypoxia; I10 Essential (primary) hypertension; E03.9 Hypothyroidism, unspecified; F41.9 Anxiety disorder, unspecified
CPT/HCPCS: 36415; 36600; 51702; 71045; 71275; 80051; 80053; 81001; 82330; 82550; 82728; 82803; 82805; 83036; 83605; 83615; 83735; 83880; 84100; 84145; 84484; 85007; 85025; 85378; 85610; 85651; 85730; 86140; 87040; 87205; 87426; 87804; 93005; 94640; 94664; 96365; 96367; 96372; 96375; 99285; J0456; J0696; J1100; J1650; J1940; J2060; J2405; J3262; J3535; J7030; J7050; Q9967

== ENCOUNTER 2021-08-18 14:19 | Outpatient (CLI) | payer BC, MEDICAID, SELFPAY ==
--- NOTE | 2021-08-18 14:30 | XR_ITS ---
WS: [email or web address] Exam: XR chest 2V* [id number] Date/Time of Exam: 08/18/2021 2:34 PM Reason For Exam: SHORTNESS OF BREATH ON EXERTION Comparison 07/03/2021. Scattered mild opacities in both lungs probably chronic. The lungs are fully expanded. No pleural eff usions. Normal cardiomediastinal silhouette. Bony structures are intact. XR/XR chest 2V* [id number] IMPRESSION: 1. Scattered mild bilateral pulmonary opacities probably representing chronic c hange. 2. No other significant finding.
== END 2021-08-18 14:20 | disposition home or self-care (01) ==
LOC: RAD 14:24
PROVIDERS: PCP Nurse Practitioner; Visit Provider Nurse Practitioner Family
DX: R06.02 Shortness of breath (principal)
CPT/HCPCS: 71046

== ENCOUNTER 2021-08-24 08:44 | Outpatient (CLI) | payer BC, MEDICAID, SELFPAY ==
[2021-08-24 10:18] LABS: Thyroid Stimulating Hormone 7.77 uIU/mL (0.27-4.20)
== END 2021-08-24 08:45 | disposition home or self-care (01) ==
PROVIDERS: PCP Nurse Practitioner Family; Visit Provider Internal Medicine
DX: E03.9 Hypothyroidism, unspecified (principal)
CPT/HCPCS: 36415; 84443

== ENCOUNTER 2022-06-07 14:36 | Outpatient (CLI) | payer BC, MEDICAID, SELFPAY ==
--- NOTE | 2022-06-07 15:08 | XR_ITS ---
WS: [email or web address] Right knee, AP and lateral views, 06/07/2022 Clinical Data: PAIN IN R KNEE Comparison: None. Findings: No fractures or dislocations are seen. The joint spaces are normal. There are small spurs of the late ral femoral condyle and lateral tibial plateau. There is minimal calcification adjacent to the medial femoral condyle which may be from old trauma. The patella is intact. The soft tissues are unremarkab le. XR/XR knee RT 1-2V [id number] Impression: Mild osteoarthritis of the right knee Kellgren-Laith Classification: grade 1 (doubtful): doubtful joint space narr owing and possible osteophytic lipping
== END 2022-06-07 14:37 | disposition home or self-care (01) ==
PROVIDERS: PCP Nurse Practitioner Family; Visit Provider Nurse Practitioner Family
DX: M17.11 Unilateral primary osteoarthritis, right knee (principal)
CPT/HCPCS: 73560

== ENCOUNTER 2022-07-13 10:15 | Outpatient (CLI) | payer BC, MEDICAID, SELFPAY ==
--- NOTE | 2022-07-13 10:28 | XR_ITS ---
WS: [email or web address] Right shoulder, 2 views, 07/13/2022 Clinical Data: PAIN IN R SHOULDER Comparison: None. Findings: No fractures or dislocations are seen. The AC joint is normal. The adjacent right clavicle, right sca pula and ribs are normal. The soft tissues are unremarkable. XR/XR shoulder RT min 2V* [id number] Impression: Negative right shoulder.
--- NOTE | 2022-07-13 10:28 | XR_ITS ---
WS: [email or web address] Right wrist, 3 views, 07/13/2022 Clinical Data: EFFUSION/SWELLING OF JOINT OF FOREARM Comparison: None. Findings: No fractures or dislocations are seen. The carpal bones are intact. There is no soft tissue swelling. The distal radius and ulna are not remarkable. XR/XR wrist RT min 3V* [id number] Impression: Negative right wrist.
== END 2022-07-13 10:16 | disposition home or self-care (01) ==
PROVIDERS: PCP Nurse Practitioner Family; Visit Provider Nurse Practitioner Family
DX: M25.511 Pain in right shoulder (principal); M25.431 Effusion, right wrist
CPT/HCPCS: 73030; 73110

== ENCOUNTER 2022-09-06 13:33 | Outpatient (CLI) | payer BC, MEDICAID, SELFPAY ==
--- NOTE | 2022-09-06 13:42 | XRR_ITS ---
PROCEDURE INFORMATION: Exam: XR Chest Exam date and time: 09/06/2022 1:44 PM Age: 51 years old Clinical indication: Shortness of breath; Patient HX: Post covid x 2 years ago. Still short of breath TECHNIQUE: Imaging protocol: Radiologic exam of the chest. Views: 2 views. COMPARISON: CR XR chest 2V* [id number] 08/18/2021 2:34 PM FINDINGS: Lungs: There is mild ill-defined opacity in the lower lungs bilaterally, greater on the right, unchanged since 08/18/2021. Pleural spaces: There is no pleural effusion or pneumothorax. Heart/Mediastinum: Cardiomediastinal contours are unremarkable. Bones/joints: Bones are unremarkable. XR/XR chest 2V* [id number] IMPRESSION: No acute findings. Stable mild chronic nonspecific bilateral lower lung opacity. No change since 08/18/2021. Findings may be related to remote prior infection. A recurrent acute process is not unequivocally excluded.
--- NOTE | 2022-09-06 13:46 | MM_ITS ---
WS: [email or web address] BILATERAL 3D TOMOSYNTHESIS DIGITAL SCREENING MAMMOGRAPHY WITH CAD CLINICAL INFORMATION: SCREENING HISTORY: Screening mammogram. No current complaints. COMPARISON: None. TECHNIQUE: Bilateral CC and MLO views. FINDINGS: Scattered fibroglandular densities bilaterally. No suspicious focal mass, asymmetry, calcifications, or architectural distortion. No evidence of malignancy. Scattered incidental punctate calcifications. MM/[place] [id number] IMPRESSION: BI-RADS: 2-Benign FOLLOW UP: 1 Year Follow-up Recommend return to annual screening mammography.
== END 2022-09-06 13:34 | disposition home or self-care (01) ==
PROVIDERS: PCP Nurse Practitioner Family; Visit Provider Nurse Practitioner Family
DX: Z12.31 Encounter for screening mammogram for malignant neoplasm of breast (principal)
CPT/HCPCS: 71046; 77063; 77067

== ENCOUNTER → 2022-11-09 08:46 | Outpatient (BNVA) | payer MEDICAID, SELFPAY | PROVIDERS: PCP Nurse Practitioner Family; Visit Provider Internal Medicine | DX: R76.8 Other specified abnormal immunological findings in serum (principal); R21 Rash and other nonspecific skin eruption; R70.0 Elevated erythrocyte sedimentation rate; M25.50 Pain in unspecified joint | CPT/HCPCS: 36415; 80053; 81003; 82550; 83516; 83735; 84100; 84439; 84443; 85025; 85651; 86140; 86160; 86162; 86235; 86255; 86376; 86704; 86803; 87340; 99204 ==

== ENCOUNTER 2022-11-17 13:28 | Outpatient (CLI) | payer MEDICAID, SELFPAY | END 2022-11-17 13:29 | disposition home or self-care (01) | LOC: RT 13:31 | PROVIDERS: PCP Nurse Practitioner Family; Visit Provider Nurse Practitioner Family | DX: R06.02 Shortness of breath (principal) | CPT/HCPCS: 94010; 94726; 94729 ==

== ENCOUNTER → 2022-12-20 11:14 | Outpatient (BNVA) | payer MEDICAID, SELFPAY | PROVIDERS: PCP Nurse Practitioner Family; Visit Provider Internal Medicine | DX: R76.8 Other specified abnormal immunological findings in serum (principal); R70.0 Elevated erythrocyte sedimentation rate; R21 Rash and other nonspecific skin eruption; M25.50 Pain in unspecified joint; E03.9 Hypothyroidism, unspecified | CPT/HCPCS: 99214 ==

== ENCOUNTER → 2022-12-28 14:48 | Outpatient (BNVA) | payer MEDICAID, SELFPAY | PROVIDERS: PCP Nurse Practitioner Family; Visit Provider Nurse Practitioner Family | DX: B35.3 Tinea pedis (principal); L40.0 Psoriasis vulgaris; D22.5 Melanocytic nevi of trunk; L81.4 Other melanin hyperpigmentation; Z71.89 Other specified counseling; L85.3 Xerosis cutis; L57.8 Other skin changes due to chronic exposure to nonionizing radiation | CPT/HCPCS: 99204 ==

== ENCOUNTER 2023-02-14 14:10 | Outpatient (CLI) | payer MEDICAID, SELFPAY ==
--- NOTE | 2023-02-14 14:23 | MR_ITS ---
WS: [email or web address] MRI OF THE LEFT LOWER LEG WITHOUT GADOLINIUM ENHANCEMENT INDICATION: Lump LEFT thigh. Cellulitis. TECHNIQUE: Coronal T1, sagittal STIR, sagittal T1, coronal STIR, axial T2 fat sat and axial PD fat-sa t FINDINGS: Some images degraded by motion artifact. Normal bone marrow signal in the LEFT femur and femoral shaft. No evidence of acute fracture. No evid ence of osteomyelitis in the visualized LEFT femur. Distal femoral condyles incompletely included on the study. Subcutaneous edema involving the LEFT thigh extending to the mid thigh. Soft tissue edema at the groi n. Small fluid collection in the area of palpable marker in the deep subcutaneous soft tissues measur ing 2.0 x 1.0 x 3.5 cm AP by transverse by craniocaudal. Surrounding induration and soft tissue edema . Gadolinium not administered. Small amount of hemosiderin or vessel in this location. No other visualized soft tissue abnormalities in the thigh. A few small reactive upper thigh lymph no saira. No other suspicious anomalies. MR/MR lower leg LT wo con* [id number] IMPRESSION: 1. Subcutaneous edema involving the LEFT thigh soft tissues extending from the groin to the mid thigh. 2. Small fluid collection with surrounding induration in the deep subcutaneous soft tissues in the upper thigh in the area of palpable marker. Associated param rounding induration. This likely represents small abscess given history of cell ulitis. Resolving hematoma less likely. This does not appear easily drainable d ue to small size. Superficial thrombophlebitis would be an additional considera tion. Consider ultrasound LEFT lower extremity to exclude thrombus 3. A few reactive lymph nodes in the upper thigh anteriorly. 4. Normal bone marrow signal in the LEFT femur. No evidence of osteomyelitis.
== END 2023-02-14 14:11 | disposition home or self-care (01) ==
PROVIDERS: PCP Nurse Practitioner Family; Visit Provider Nurse Practitioner Family
DX: L03.116 Cellulitis of left lower limb (principal); R10.32 Left lower quadrant pain; R93.6 Abnormal findings on diagnostic imaging of limbs
CPT/HCPCS: 73718

== ENCOUNTER 2023-03-08 10:56 | Outpatient (CLI) | payer MEDICAID, SELFPAY ==
--- NOTE | 2023-03-08 11:45 | XR_ITS ---
WS: [email or web address] XR hand RT 2V [id number] REASON FOR EXAM: R76.8 - Other specified abnormal immunological findings i... FINDINGS: No fracture or focal bone lesion. No periosteal reaction or bony erosion. There is mild narrowing of the joint space with mild subchondral sclerosis and moderate osteophytosis in the DIP joints of the thumb, index finger, and the fifth finger. The remainder of the joint space s in the right hand are intact and relatively well preserved. No soft tissue abnormality. IMPRESSION: Mild osteoarthritis in the right hand as above.
--- NOTE | 2023-03-08 11:45 | XR_ITS ---
WS: [email or web address] XR knee LT 1-2V [id number] REASON FOR EXAM: R76.8 - Other specified abnormal immunological findings i... FINDINGS: No fracture or focal bone lesion. Mild narrowing of the medial knee joint space with mild subchondral sclerosis and moderate osteophyto sis. The lateral knee joint space is intact and well preserved. Mild subchondral sclerosis and moderate os teophytosis. Mild narrowing of the patellofemoral joint space with moderate subchondral sclerosis and osteophytosi s of the patella. No soft tissue abnormality. IMPRESSION: Moderate osteoarthritis of the left knee.
--- NOTE | 2023-03-08 11:45 | XR_ITS ---
WS: [email or web address] XR knee RT 1-2V [id number] REASON FOR EXAM: R76.8 - Other specified abnormal immunological findings i... FINDINGS: No fracture or focal bone lesion. Mild narrowing of the medial knee joint space. Mild subchondral sclerosis and moderate osteophytosis. Lateral knee joint space is intact and relatively well preserved. Mild subchondral sclerosis and mode rate osteophytosis. Mild narrowing of the patellofemoral joint space with mild/moderate subchondral sclerosis and osteoph ytosis of the patella. No soft tissue abnormality. IMPRESSION: Mild/moderate osteoarthritis of the right knee.
--- NOTE | 2023-03-08 11:45 | XR_ITS ---
WS: [email or web address] XR hand LT 2V [id number] REASON FOR EXAM: R76.8 - Other specified abnormal immunological findings i... FINDINGS: No fracture or focal bone lesion. No erosions or periosteal reaction. Minimal joint space narrowing with mild subchondral sclerosis in the joints of the thumb. The remaind er of the joint spaces in the left hand are intact and well preserved. No soft tissue abnormality. IMPRESSION: Mild osteoarthritis of the left hand as above.
[2023-03-08 11:49] LABS: Basophils # 0.1 10^3/uL (0.0-0.1); Basophils % 0.8 %; Eosinophils # 0.4 10^3/uL (0.0-0.8); Eosinophils % 5.7 %; Hematocrit 37.6 % (37.0-47.0); Hemoglobin 11.7 g/dL (11.5-15.3); Lymphocytes # 1.6 10^3/uL (0.8-4.8); Lymphocytes % 23.8 %; Mean Corpuscular HGB Conc 31.1 g/dL (30.0-36.0); Mean Corpuscular Hemoglobin 27.1 pg (28.0-34.0); Mean Platelet Volume 9.3 fL (7.4-10.4); Monocytes # 0.4 10^3/uL (0.2-0.9); Monocytes % 6.7 %; Neutrophils # 4.11 10^3/uL (1.8-7.7); Neutrophils % 62.1 %; Nucleated Red Blood Cells % 0 %; Platelet Count 261 10^3/cmm (130-400); Red Blood Count 4.32 10^6/uL (4.1-5.3); Red Cell Distribution Width 16.7 % (12.1-15.1); White Blood Count 6.6 10^3/uL (4.0-10.0)
[2023-03-08 11:55] LABS: Erythrocyte Sedimentation Rate 21 mm/hr (0-15)
[2023-03-08 12:10] LABS: Alanine Aminotransferase 17 U/L (0-33); Albumin Level 4.1 g/dL (3.5-5.2); Alkaline Phosphatase 91 U/L (35-105); Anion Gap 14.8 (5-19); Aspartate Amino Transferase 17 U/L (0-32); Blood Urea Nitrogen 16 mg/dL (6-20); Calcium 8.7 mg/dL (8.5-10.5); Carbon Dioxide 24 mmol/L (22-29); Chloride 104 mmol/L (98-107); Globulin 2.6 g/dL (1.3-4.6); Glomerular Filtration Rate 75.3 mL/min (90-130); Glucose 110 mg/dL (65-115); Osmolality Calculated 288 mOsm/kg (285-295); Potassium 4.8 mmol/L (3.5-5.1); Sodium 138 mmol/L (136-145); Total Bilirubin 0.2 mg/dL (0.15-1.2); Total Protein 6.7 g/dL (6.6-8.7)
== END 2023-03-08 10:57 | disposition home or self-care (01) ==
PROVIDERS: PCP Nurse Practitioner Family; Visit Provider Internal Medicine
DX: R70.0 Elevated erythrocyte sedimentation rate (principal); R76.8 Other specified abnormal immunological findings in serum; M17.0 Bilateral primary osteoarthritis of knee; M19.041 Primary osteoarthritis, right hand
CPT/HCPCS: 36415; 73120; 73560; 80053; 85025; 85651; 86140

== ENCOUNTER → 2023-03-29 08:53 | Outpatient (BNVA) | payer MEDICAID, SELFPAY | PROVIDERS: PCP Nurse Practitioner Family; Visit Provider Nurse Practitioner Family | DX: B35.3 Tinea pedis (principal); L30.9 Dermatitis, unspecified; D22.5 Melanocytic nevi of trunk; L81.4 Other melanin hyperpigmentation | CPT/HCPCS: 99213 ==

== ENCOUNTER → 2023-04-14 08:57 | Outpatient (BNVA) | payer MEDICAID, SELFPAY | PROVIDERS: PCP Nurse Practitioner Family; Visit Provider Internal Medicine | DX: R76.8 Other specified abnormal immunological findings in serum (principal); M25.562 Pain in left knee; R70.0 Elevated erythrocyte sedimentation rate; R21 Rash and other nonspecific skin eruption; M25.50 Pain in unspecified joint; E03.9 Hypothyroidism, unspecified | CPT/HCPCS: 99214 ==